=== PATIENT | female | born 1990 | race Caucasian/White ===

== ENCOUNTER 2021-08-06 09:45 | Outpatient (REF) | payer OTHER, SELFPAY ==
--- NOTE | ~2021-08-06 | MR_ITS ---
EXAMINATION: MR BRAIN WITHOUT AND WITH CONTRAST MR CERVICAL SPINE WITHOUT AND WITH CONTRAST CLINICAL INDICATION Multiple sclerosis. COMPARISON: MRI scans of the brain and cervical spine MRI [facility] 08/02/2019 and 08/03/2019 respectively. TECHNIQUE: MRI scans of the brain and cervical spine were obtained using routine sequences without and with contrast. Intravenous contrast: Gadavist, 6 mL. Some images are degraded by patient motion artifact. FINDINGS: MRI Brain: There are multiple areas of increased T2 and FLAIR signal in the periventricular and subcortical white matter bilaterally and in the right greater than left centrum semiovale, and the distribution consistent with demyelination. These appear similar compared to prior imaging. There is also abnormal signal noted in the dorsal mira to the left of midline, which appears less intense compared to prior imaging. Foci of abnormal signal in the medial left middle cerebellar peduncle and in the bilateral cerebellar hemispheres are also redemonstrated. None of these foci demonstrate restricted diffusion or abnormal enhancement to suggest active demyelination. No definite new lesions are demonstrated. No diffusion abnormalities are identified to suggest an acute or subacute infarct. No mass effect or midline shift is seen. The ventricles are normal in size. No extra-axial fluid collections are seen. On postcontrast imaging, there is no abnormal parenchymal or leptomeningeal enhancement. No pathologic magnetic susceptibility artifact is identified on the gradient refocused acquisition. 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 Marrow signal and midline structures are normal. The major intracranial flow-voids at the level of the [place] are preserved. The dural venous sinus flow-voids are maintained. The mastoid air cells are well-aerated. There is a small retention cyst in the inferior right maxillary sinus. MRI Cervical Spine: VERTEBRAL BODIES AND PARASPINAL SOFT TISSUES: There is straightening of the normal cervical lordosis which is nonspecific. Intervertebral disc heights are maintained. The vertebral bodies have normal height and contour and no fractures are demonstrated. Marrow signal is homogenous. The visualized regional soft tissues are unremarkable; evaluation of the lower cervical region is obscured by artifact. There is no abnormal osseous enhancement. CERVICOMEDULLARY JUNCTION AND VISUALIZED POSTERIOR FOSSA: There are multiple areas of increased T2 and STIR signal in the cerebellar hemispheres bilaterally, demonstrated on the concurrent MRI scan of the brain. As described above, the right cerebellar tonsillar tip is low-lying with a pointed configuration. Accounting for artifact, spinal cord signal appears normal. There is no abnormal enhancement of the spinal cord. SPINAL LEVELS: C2-C3: There is a small left-sided disc protrusion with minimal distortion of the ventral thecal sac. There is no spinal cord compression or central stenosis. There is minimal left foraminal narrowing. C3-C4: The facet joints appear normal bilaterally. Posterior disc contour is normal. There is no spinal cord compression or central stenosis. The neural foramina are patent bilaterally. C4-C5: The facet joints appear normal bilaterally. Posterior disc contour is normal. There is no spinal cord compression or central stenosis. The neural foramina are patent bilaterally. C5-C6: There is a shallow posterior disc protrusion, which effaces CSF ventral to the spinal cord. There is no spinal cord compression or central stenosis. The neural foramina appear patent. C6-C7: There is a small posterior disc protrusion without spinal cord compression or central stenosis. The neural foramina are patent bilaterally. C7-T1: The facet joints appear normal bilaterally. Posterior disc contour is normal. There is no spinal cord compression or central stenosis. The neural foramina are patent bilaterally. MR/MR cervical spine wo/w con IMPRESSION: MRI brain: 1. There are no acute bleeds or infarcts. There are no masses or areas of abnormal enhancement. 2. The study redemonstrates multiple areas of hyperintense T2 and FLAIR signal in the supratentorial and infratentorial regions as described above, in a distribution consistent with demyelination. There is no restricted diffusion or abnormal enhancement to suggest active plaques. 3. The right cerebellar tonsillar tip is low-lying with a pointed configuration which may be consistent with a Chiari I malformation. MRI cervical spine: 1. Evaluation is degraded by patient motion artifact on multiple sequences. 2. Spinal cord signal appears normal and there is no abnormal enhancement. 3. There is mild spondylosis without spinal cord compression or central stenosis. There is no significant foraminal narrowing.
== END 2021-08-06 09:46 | disposition home or self-care (01) ==
LOC: HO.MRI 09:45
PROVIDERS: Visit Provider Psychiatry & Neurology Neurology
DX: G35 Multiple sclerosis (principal)
CPT/HCPCS: 70553; 72156; A9585

== ENCOUNTER 2021-08-11 11:43 | Outpatient (REF) | payer OTHER, SELFPAY ==
[2021-08-11 11:57] LABS: MANUAL DIFF FLAG NO
[2021-08-11 12:10] LABS: Basophils Percent Auto 0.3 % (0-2); Eosinophils Absolute Auto 0.1 X10*3/uL (0.0-0.4); Eosinophils Percent Auto 2.1 % (0-4); Hematocrit 41.4 % (37.0-47.0); Hemoglobin 13.7 g/dl (12.0-16.0); Imm Gran Abs Auto 0.02 X10*3/uL (0.00-0.03); Imm Gran Pct Auto 0.3 % (0.0-0.4); Lymphocytes Absolute Auto 2.1 X10*3/uL (1.2-4.9); Lymphocytes Percent Auto 34.6 % (20-40); Mean Corpuscular HGB Conc 33.1 g/dl (31.0-35.0); Mean Corpuscular Hemoglobin 29.7 pg (27.0-33.0); Mean Corpuscular Volume 89.8 fL (80.0-98.0); Mean Platelet Volume 11.9 fL (9.4-12.3); Monocytes Absolute Auto 0.4 X10*3/uL (0.1-1.2); Monocytes Percent Auto 6.5 % (2-11); Neutrophils Absolute Auto 3.4 x10*3/uL (2.0-8.3); Neutrophils Percent Auto 56.2 % (45-73); Platelet Count 206 X10*3/uL (160-400); Red Blood Count 4.61 X10*6/uL (4.20-5.50); Red Cell Distribution Width 12.5 % (11.0-16.0); White Blood Count 6.1 X10*3/uL (4.8-10.8)
[2021-08-11 12:45] LABS: Erythrocyte Sedimentation Rate 2 MM/HR (0-20)
[2021-08-11 13:02] LABS: Alanine Aminotransferase 25 U/L (0-31); Albumin Level 4.7 g/dL (3.5-5.0); Alkaline Phosphatase 66 U/L (39-117); Anion Gap 12 (12-20); Aspartate Amino Transferase 20 U/L (5-31); Bilirubin Direct 0.2 mg/dL (0.0-0.5); Bilirubin Total 0.5 mg/dL (0.0-1.0); Blood Urea Nitrogen 15 mg/dL (9-16); Calcium 9.7 mg/dL (8.4-10.2); Carbon Dioxide 26 mmol/L (22-29); Chloride 105 mmol/L (96-108); Estimated Glomerular Filt Rate > 60; Glucose Random 88 mg/dL (60-115); Potassium 4.3 mmol/L (3.3-5.1); Sodium 139 mmol/L (135-145); Total Protein 7.7 g/dL (6.5-8.0)
[2021-08-12 08:51] LABS: Lyme Abs Screen <0.90 index
[2021-08-18 20:51] LABS: JCV Antibody INDETERMINATE; JCV Index Value 0.24
[2021-08-19 22:36] LABS: JCV Ab Inhibition FINAL RSLT: POSITIVE
== END 2021-08-11 11:44 | disposition home or self-care (01) ==
LOC: HO.LAB 11:43
PROVIDERS: PCP Family Medicine; Visit Provider Psychiatry & Neurology Neurology
DX: G35 Multiple sclerosis (principal)
CPT/HCPCS: 36415; 80053; 82248; 85025; 85652; 86617; 86618; 86711

== ENCOUNTER 2023-01-18 10:30 | Outpatient (REF) | payer OTHER, SELFPAY ==
--- NOTE | ~2023-01-18 | MR_ITS ---
EXAMINATION: MR BRAIN WITHOUT AND WITH CONTRAST MR CERVICAL SPINE WITHOUT AND WITH CONTRAST MR THORACIC SPINE WITHOUT AND WITH CONTRAST CLINICAL INDICATION Multiple sclerosis. COMPARISON: MRI scans of the brain and cervical spine 08/06/2021. TECHNIQUE: MRI scans of the brain, and cervical spine and thoracic were obtained using routine sequences without and with contrast. Intravenous contrast: Gadavist, 7 mL. FINDINGS: MRI Brain: The study redemonstrates multiple areas of increased T2 and FLAIR signal in the periventricular and subcortical white matter, in the right greater than left centra semiovale, in the left middle cerebellar peduncle and in the bilateral cerebellar hemispheres. Multiple of the lesions are more prominent compared to prior imaging. This particularly involves the lesion in the right centrum semiovale body which now measures 1.7 cm transversely, increased from 0.9 cm on the prior study. There has been interval increase in the abnormal signal around the trigone of the right lateral ventricle. Multiple small new foci of increased signal are seen adjacent to the posterior body of the left lateral ventricle. The lesion in the right centrum semiovale demonstrates increased diffusion signal without restriction with hyperintense ADC map signal. It has corresponding prominent area of intrinsically low T1 signal, which has developed since prior imaging. A few of the other small foci of hyperintense T2/STIR signal have corresponding low T1 signal without enhancement, particularly around the posterior body of the left lateral ventricle. None of the foci demonstrate abnormal enhancement. The corpus callosum has good volume. No diffusion abnormalities are identified to suggest an acute or subacute infarct. No mass effect or midline shift is seen. The ventricles and sulci are normal in size. No extra-axial fluid collections are seen. The brainstem and cerebellum are normal. On postcontrast imaging, there is no abnormal parenchymal or leptomeningeal enhancement. No pathologic magnetic susceptibility artifact is identified on the gradient refocused acquisition. Marrow signal and midline structures are normal. The major intracranial flow-voids at the level of the [place] are preserved. The dural venous sinus flow-voids are maintained. The study redemonstrates a low lying right cerebellar tonsillar tip. The mastoid air cells and the paranasal sinuses are well-aerated. MRI Cervical Spine: VERTEBRAL BODIES AND PARASPINAL SOFT TISSUES: There is slight reversal of the normal cervical lordosis at C5-C6. Intervertebral disc heights are maintained. The vertebral bodies have normal height and contour, and no fractures are demonstrated. Overall, marrow signal is homogenous. There is no abnormal osseous enhancement. The regional soft tissues are unremarkable. CERVICOMEDULLARY JUNCTION AND VISUALIZED POSTERIOR FOSSA: As described above, there are areas of abnormal signal in the cerebellum and left middle cerebellar peduncle. On the current exam, there is a new area of increased T2/STIR signal in the spinal cord dorsally in the midline at the level of the superior body of C6, which is a new finding compared to prior imaging. The spinal cord is minimally thicker at this level. Accounting for artifact, spinal cord signal appears normal. There is no abnormal enhancement in the cervical spinal cord. SPINAL LEVELS: C2-C3: The facet joints appear normal. There has been slight interval increase in the size of the left-sided posterior disc protrusion with mild distortion of the ventral thecal sac but there is no cord compression or central stenosis. There is mild left foraminal narrowing. C3-C4: The facet joints appear normal bilaterally. Posterior disc contour is normal. There is no spinal cord compression or central stenosis. The neural foramina are patent bilaterally. C4-C5: The facet joints appear normal. There is a shallow posterior disc protrusion but there is no cord compression or central stenosis. The neural foramina are patent bilaterally. C5-C6: The facet joints appear normal. There is a broad-based posterior disc protrusion which effaces CSF ventral to the spinal cord, slightly more prominent compared to prior imaging, without cord compression or central stenosis. There are uncovertebral osteophytes, and there is mild bilateral foraminal narrowing. C6-C7: The facet joints appear normal. There is a broad-based posterior disc protrusion which effaces CSF ventral to the cord, without cord compression or central stenosis which is slightly more prominent compared to prior imaging. The neural foramina are patent bilaterally. C7-T1: The facet joints appear normal bilaterally. Posterior disc contour is normal. There is no spinal cord compression or central stenosis. The neural foramina are patent bilaterally. MR thoracic spine: VERTEBRAL BODIES AND PARASPINAL STRUCTURES: There is anatomic alignment of the vertebral bodies. Intervertebral disc heights are maintained. The vertebral bodies have normal height and contour, and no fractures are demonstrated. Overall, marrow signal is homogenous. There is no abnormal osseous enhancement following intravenous contrast administration. The paravertebral and the visualized posterior thoracic and superior retroperitoneal structures are unremarkable. The conus is at the level of L1. Accounting for artifact, spinal cord signal appears normal. There is no abnormal enhancement of the thoracic spinal cord. SPINAL LEVELS: Posterior disc contours are normal throughout the thoracic spine, and there is no central stenosis or cord compression. The neural foramina appear patent. MR/MR cervical spine wo/w con IMPRESSION: MRI Brain: 1. The study redemonstrates multiple areas of increased T2 and FLAIR signal in the white matter as described above, consistent with areas of demyelination. Multiple of the lesions are more prominent compared to prior imaging, and some new foci of abnormal signal are demonstrated on the current study. None of the foci demonstrate restricted diffusion or abnormal enhancement. 2. There are no acute bleeds or infarcts. There are no masses or areas of abnormal enhancement. 3. The study redemonstrates a low lying right cerebellar tonsillar tip. MRI Cervical and Thoracic Spine: 1. There is a new area of abnormal signal in the spinal cord dorsally in the midline at the level of the superior body of C6, with slight thickening of the cord at this level. Spinal cord signal otherwise appears normal. There is no abnormal enhancement in the cervical or thoracic spinal cord. 2. There has been slight interval increase in posterior disc protrusions at multiple levels in the cervical spine, but there is no cord compression or central stenosis. There is mild foraminal narrowing as described above. There is no significant spondylosis in the thoracic spine. 3. There is no abnormal osseous enhancement.
== END 2023-01-18 10:31 | disposition home or self-care (01) ==
LOC: HO.MRI 10:30
PROVIDERS: PCP Family Medicine; Visit Provider Psychiatry & Neurology Neurology
DX: G35 Multiple sclerosis (principal)
CPT/HCPCS: 70553; 72156; A9585

== ENCOUNTER 2023-01-20 12:41 | Outpatient (REF) | payer OTHER, SELFPAY ==
--- NOTE | ~2023-01-20 | MR_ITS ---
EXAMINATION: MR BRAIN WITHOUT AND WITH CONTRAST MR CERVICAL SPINE WITHOUT AND WITH CONTRAST MR THORACIC SPINE WITHOUT AND WITH CONTRAST CLINICAL INDICATION Multiple sclerosis. COMPARISON: MRI scans of the brain and cervical spine 08/06/2021. TECHNIQUE: MRI scans of the brain, and cervical spine and thoracic were obtained using routine sequences without and with contrast. Intravenous contrast: Gadavist, 7 mL. FINDINGS: MRI Brain: The study redemonstrates multiple areas of increased T2 and FLAIR signal in the periventricular and subcortical white matter, in the right greater than left centra semiovale, in the left middle cerebellar peduncle and in the bilateral cerebellar hemispheres. Multiple of the lesions are more prominent compared to prior imaging. This particularly involves the lesion in the right centrum semiovale body which now measures 1.7 cm transversely, increased from 0.9 cm on the prior study. There has been interval increase in the abnormal signal around the trigone of the right lateral ventricle. Multiple small new foci of increased signal are seen adjacent to the posterior body of the left lateral ventricle. The lesion in the right centrum semiovale demonstrates increased diffusion signal without restriction with hyperintense ADC map signal. It has corresponding prominent area of intrinsically low T1 signal, which has developed since prior imaging. A few of the other small foci of hyperintense T2/STIR signal have corresponding low T1 signal without enhancement, particularly around the posterior body of the left lateral ventricle. None of the foci demonstrate abnormal enhancement. The corpus callosum has good volume. No diffusion abnormalities are identified to suggest an acute or subacute infarct. No mass effect or midline shift is seen. The ventricles and sulci are normal in size. No extra-axial fluid collections are seen. The brainstem and cerebellum are normal. On postcontrast imaging, there is no abnormal parenchymal or leptomeningeal enhancement. No pathologic magnetic susceptibility artifact is identified on the gradient refocused acquisition. Marrow signal and midline structures are normal. The major intracranial flow-voids at the level of the [place] are preserved. The dural venous sinus flow-voids are maintained. The study redemonstrates a low lying right cerebellar tonsillar tip. The mastoid air cells and the paranasal sinuses are well-aerated. MRI Cervical Spine: VERTEBRAL BODIES AND PARASPINAL SOFT TISSUES: There is slight reversal of the normal cervical lordosis at C5-C6. Intervertebral disc heights are maintained. The vertebral bodies have normal height and contour, and no fractures are demonstrated. Overall, marrow signal is homogenous. There is no abnormal osseous enhancement. The regional soft tissues are unremarkable. CERVICOMEDULLARY JUNCTION AND VISUALIZED POSTERIOR FOSSA: As described above, there are areas of abnormal signal in the cerebellum and left middle cerebellar peduncle. On the current exam, there is a new area of increased T2/STIR signal in the spinal cord dorsally in the midline at the level of the superior body of C6, which is a new finding compared to prior imaging. The spinal cord is minimally thicker at this level. Accounting for artifact, spinal cord signal appears normal. There is no abnormal enhancement in the cervical spinal cord. SPINAL LEVELS: C2-C3: The facet joints appear normal. There has been slight interval increase in the size of the left-sided posterior disc protrusion with mild distortion of the ventral thecal sac but there is no cord compression or central stenosis. There is mild left foraminal narrowing. C3-C4: The facet joints appear normal bilaterally. Posterior disc contour is normal. There is no spinal cord compression or central stenosis. The neural foramina are patent bilaterally. C4-C5: The facet joints appear normal. There is a shallow posterior disc protrusion but there is no cord compression or central stenosis. The neural foramina are patent bilaterally. C5-C6: The facet joints appear normal. There is a broad-based posterior disc protrusion which effaces CSF ventral to the spinal cord, slightly more prominent compared to prior imaging, without cord compression or central stenosis. There are uncovertebral osteophytes, and there is mild bilateral foraminal narrowing. C6-C7: The facet joints appear normal. There is a broad-based posterior disc protrusion which effaces CSF ventral to the cord, without cord compression or central stenosis which is slightly more prominent compared to prior imaging. The neural foramina are patent bilaterally. C7-T1: The facet joints appear normal bilaterally. Posterior disc contour is normal. There is no spinal cord compression or central stenosis. The neural foramina are patent bilaterally. MR thoracic spine: VERTEBRAL BODIES AND PARASPINAL STRUCTURES: There is anatomic alignment of the vertebral bodies. Intervertebral disc heights are maintained. The vertebral bodies have normal height and contour, and no fractures are demonstrated. Overall, marrow signal is homogenous. There is no abnormal osseous enhancement following intravenous contrast administration. The paravertebral and the visualized posterior thoracic and superior retroperitoneal structures are unremarkable. The conus is at the level of L1. Accounting for artifact, spinal cord signal appears normal. There is no abnormal enhancement of the thoracic spinal cord. SPINAL LEVELS: Posterior disc contours are normal throughout the thoracic spine, and there is no central stenosis or cord compression. The neural foramina appear patent. MR/MR thoracic spine wo/w con IMPRESSION: MRI Brain: 1. The study redemonstrates multiple areas of increased T2 and FLAIR signal in the white matter as described above, consistent with areas of demyelination. Multiple of the lesions are more prominent compared to prior imaging, and some new foci of abnormal signal are demonstrated on the current study. None of the foci demonstrate restricted diffusion or abnormal enhancement. 2. There are no acute bleeds or infarcts. There are no masses or areas of abnormal enhancement. 3. The study redemonstrates a low lying right cerebellar tonsillar tip. MRI Cervical and Thoracic Spine: 1. There is a new area of abnormal signal in the spinal cord dorsally in the midline at the level of the superior body of C6, with slight thickening of the cord at this level. Spinal cord signal otherwise appears normal. There is no abnormal enhancement in the cervical or thoracic spinal cord. 2. There has been slight interval increase in posterior disc protrusions at multiple levels in the cervical spine, but there is no cord compression or central stenosis. There is mild foraminal narrowing as described above. There is no significant spondylosis in the thoracic spine. 3. There is no abnormal osseous enhancement.
== END 2023-01-20 12:42 | disposition home or self-care (01) ==
LOC: HO.MRI 12:41
PROVIDERS: PCP Family Medicine; Visit Provider Psychiatry & Neurology Neurology
DX: G35 Multiple sclerosis (principal)
CPT/HCPCS: 72157; A9585

== ENCOUNTER 2023-07-15 10:14 | Outpatient (REF) | payer MEDICAID, SELFPAY ==
--- NOTE | ~2023-07-15 | MR_ITS ---
EXAMINATION: MR BRAIN WITHOUT AND WITH CONTRAST MR CERVICAL SPINE WITHOUT AND WITH CONTRAST CLINICAL INFORMATION: Follow up MS. COMPARISON: 01/18/2023 MRI. TECHNIQUE: Multiplanar multisequence MR imaging of the brain was done prior to and following the intravenous administration of 7.5 mL of Gadavist. Multiplanar multisequence MR imaging of the cervical spine was done prior to and following the intravenous administration of 7.5 mL Gadavist. BRAIN FINDINGS: BRAIN VOLUME: Within normal limits within the limitations of qualitative assessment. 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 BRAIN AND MENINGES: DWI sequence demonstrates no restricted diffusion to suggest acute or subacute cerebral ischemia or active demyelination. Gradient refocused imaging demonstrates no abnormal susceptibility-weighted signal loss to suggest hemorrhage, hemosiderin staining or abnormal mineralization. Redemonstrated are numerous T2 hyperintense lesions in the white matter of both cerebral hemispheres as noted on previous study. Previously noted dominant lesion in the right centrum semiovale white matter has diminished in size, now measuring 1.3 cm, compared to 1.7 cm on the previous exam. There is diminished low T1 signal corresponding to this lesion when compared to the prior exam, and there is now a 2 mm punctate focus of enhancement corresponding to this lesion. This probably reflects partial collapse of a previous cavitary lesion. Focal enhancement on current study suggests either some degree of active inflammation or neovascularity. Some lesions in the deep periventricular white matter adjacent to the posterior body of the corpus callosum on the left appear somewhat less conspicuous and diminished in T2 signal from previous study. Multiple other lesions noted bilaterally are stable. Juxtacortical lesions in the anterior left frontal lobe and posterior left frontal lobe are stable. No definite new lesions are seen since the previous exam. Small focus of abnormal T2 hyperintense signal in the left cerebral hemispheric white matter, stable in appearance, and a tiny T2 hyperintense focus in the right cerebellar hemispheric white matter also unchanged. No other abnormal enhancement is seen throughout the remainder of the brain. T1 dark lesions adjacent to the posterior body of the corpus callosum on the left are stable. VENTRICLES AND SUBARACHNOID SPACES: The ventricular system and subarachnoid spaces are within normal range; there is no hydrocephalus. ORBITAL STRUCTURES: The visualized orbital structures are grossly unremarkable within the limitations of the study. VASCULAR: Signal voids are noted in the visualized major intracranial vessels. OSSEOUS STRUCTURES, SINUSES/MASTOIDS, EXTRACRANIAL SOFT TISSUES: Unremarkable MR/MR cervical spine wo/w con IMPRESSION: 1. Multiple white matter lesions in both cerebral and cerebellar hemispheres are again noted, some of which are diminished in size and are less conspicuous, and some of which are diminished in T2 signal. There is a 2 mm punctate focus of enhancement in the previously noted dominant right centrum semiovale white matter lesion, which may reflect some degree of active inflammation or neovascularity, with partial collapse of a central cavity. No new lesions are identified and there is no other abnormal enhancement. 2. 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 CERVICAL FINDINGS: ALIGNMENT: Normal. CRANIOCERVICAL JUNCTION/C1-C2 ARTICULATIONS: Intact and aligned. VISUALIZED INTRACRANIAL STRUCTURES: See above. SPINAL CORD: Redemonstrated is a nonenhancing T2 hyperintense lesion within the dorsal spinal cord in the midline at the C5-C6 level, grossly stable in appearance when accounting for motion artifact on the current exam. No definite new lesions are seen within the cervical or visualized upper thoracic spinal cord. VERTEBRAL BODIES: Stable vertebral body heights. No interval compression fractures. DISC SPACES AND ENDPLATES: Disc desiccation at C6-C7, stable in appearance. No significant disc space height loss or spondylosis. Endplates appear intact. BONE MARROW: No significant marrow-replacing process or bone marrow edema. C2-C3: Small left paramedian disc osteophyte complex with mild indentation of the ventral thecal sac on the left without neural impingement, stable in appearance. Mild left-sided foraminal narrowing is stable. C3-C4: Unremarkable. C4-C5: Small left paramedian disc protrusion is stable without cord impingement or canal stenosis. C5-C6: Shallow central disc protrusion noted at this level, stable in appearance, with minimal indentation of the ventral thecal sac without cord impingement or canal stenosis. C6-C7: Mild broad-based disc protrusion again noted, with encroachment on the ventral thecal sac, without cord impingement or canal stenosis, stable in appearance. C7-T1: Unremarkable. EXTRACRANIAL SOFT TISSUES: The visualized extracranial head/neck soft tissues are unremarkable within the limitations of the study. Signal voids are seen in the visualized major arterial and venous structures. IMPRESSION: 1. Stable solitary nonenhancing lesion in the spinal cord at the C6 level. No definite new spinal cord lesions are seen. 2. Stable multilevel disc protrusions without cord impingement or canal stenosis.
[2023-07-15] MEDS: gadobutroL 7.5 ML VIAL IVPUSH (11:24)
== END 2023-07-15 10:15 | disposition home or self-care (01) ==
LOC: HO.MRI 10:14
PROVIDERS: PCP Family Medicine; Visit Provider Psychiatry & Neurology Neurology
DX: G35 Multiple sclerosis (principal)
CPT/HCPCS: 70553; 72156; A9585

== ENCOUNTER 2024-05-16 13:58 | Outpatient (REF) | payer MEDICAID, SELFPAY ==
[2024-05-16 14:11] LABS: MANUAL DIFF FLAG NO
[2024-05-16 14:41] LABS: Basophils Absolute Auto 0.1 X10*3/uL (0.0-0.2); Basophils Percent Auto 0.6 % (0-2); Eosinophils Absolute Auto 0.3 X10*3/uL (0.0-0.4); Eosinophils Percent Auto 2.7 % (0-4); Hematocrit 38.9 % (37.0-47.0); Hemoglobin 13.1 g/dl (12.0-16.0); Mean Corpuscular HGB Conc 33.7 g/dl (31.0-35.0); Mean Corpuscular Hemoglobin 28.6 pg (27.0-33.0); Mean Corpuscular Volume 84.9 fL (80.0-98.0); Mean Platelet Volume 12.3 fL (9.4-12.3); Monocytes Absolute Auto 0.6 X10*3/uL (0.1-1.2); Monocytes Percent Auto 6.2 % (2-11); NRBC Pct Auto 0.3 /100WBC (0.0-0.2); Neutrophils Absolute Auto 4.7 x10*3/uL (2.0-8.3); Neutrophils Percent Auto 48.5 % (45-73); Platelet Count 200 X10*3/uL (160-400); Red Blood Count 4.58 X10*6/uL (4.20-5.50); Red Cell Distribution Width 13.7 % (11.0-16.0); White Blood Count 9.7 X10*3/uL (4.8-10.8)
[2024-05-16 15:17] LABS: Alanine Aminotransferase 17 U/L (0-31); Albumin Level 4.5 g/dL (3.5-5.0); Anion Gap 13 (12-20); Aspartate Amino Transferase 22 U/L (5-31); Bilirubin Direct 0.2 mg/dL (0.0-0.5); Bilirubin Total 0.4 mg/dL (0.0-1.0); Blood Urea Nitrogen 8 mg/dL (9-16); Calcium 9.6 mg/dL (8.4-10.2); Carbon Dioxide 25 mmol/L (22-29); Chloride 105 mmol/L (96-108); Estimated Glomerular Filt Rate > 60; Glucose Random 87 mg/dL (60-115); Potassium 3.8 mmol/L (3.3-5.1); Sodium 139 mmol/L (135-145); Total Protein 7.3 g/dL (6.5-8.0)
[2024-05-16 15:22] LABS: Alkaline Phosphatase 69 U/L (39-117)
[2024-05-22 21:54] LABS: JCV Antibody INDETERMINATE
[2024-05-22 22:03] LABS: JCV Ab Inhibition FINAL RSLT: NEGATIVE
== END 2024-05-16 13:59 | disposition home or self-care (01) ==
LOC: HO.LAB 13:58
PROVIDERS: Visit Provider Psychiatry & Neurology Neurology
DX: G35 Multiple sclerosis (principal)
CPT/HCPCS: 36415; 80048; 80076; 85025; 86711

== ENCOUNTER 2024-12-07 14:50 | Outpatient (REF) | payer OTHER, SELFPAY ==
--- OUTSIDE RECORDS SUMMARY | 2024-12-07 14:54 | XMS_ITS | Encounter Summary ---
Author Organization [facility] Address [address] [place] [address] Care Team Providers Care Return Checker Name Role Phone Mary Carmen Kendall MD Primary Care Provider [phone] Reason for Visit * Reason Onset Date Comments Back Pain 12/06/2024 Encounter Details Date Type Department Care Team (Late st Contact Info) Description 12/06/2024 Telephone Adult Medicine [address] [id number] Mary Carmen Kendall MD [address] [place] [id number] Back Pain Social History Tobacco Use Types Packs/Day Years Used Date Smoking Tobacco: Former Smokeless Tobacco: Never Alcohol Use Standard Drinks/Week Comments Yes 0 (1 standard drink = 0.6 oz pur e alcohol) Comments Unknown Sex and Gender Information Value Date Recorded Sex Assigned at Not on file Legal Sex Female 1:18 AM EST Gender Identity Not on file Sexual Orientation Not on file documented as of this encounter Progress Notes * Jose Sommer RN - 12/06/2024 2:37 PM EDT Called pt left vm to return call * Yesenia Mccoy - 12/06/2024 2:11 PM EDT The patient is returning. * Liset Dunlap RN - 12/06/2024 1:55 PM EDT Call to pt. Left message for pt to call triage * Tiffany Hauser - 12/06/2024 1:49 PM EDT Patient returning call * Jose Sommer RN - 12/06/2024 1:34 PM EDT Called pt left vm to return call * Yeni Hernandez - 12/06/2024 1:22 PM EDT Patient call requires triage: Symptoms patient is presenting: Patient has MS and was doing Tyfabri infusions 1x a month every month. She's been off it for 2 months due to abnormal GTC labs were off which was a side effect of the medication. She states that she has gained a lot of weight and her back has been hurting. How long has patient had these symptoms?: 2 months For ALL patients calling to schedule any appointment (routine, sick visit, follow up, consult, etc.) in the outpatient setting please ask the following questions: Do you have fever of higher than 101, sore throat with difficulty swallowing or severe shortness ofbreath? no If YES to any of these above symptoms, send a message to triage and do not book. Red dot. If no, an audio or video visit should be booked. Have you had close contact with someone with Coronavirus in the last 14 days? no Have you traveled abroad? no Have you traveled recently to another state outside of [place], [place], [place], [place], [place], [place], [place]? no o If yes, did you quarantine for 14 days or have a negative covid test? no If yes to any of the above, patient is not to be scheduled in office until after 14 day quarantine or negative covid test. If pain or injury related was it due to an accident at work or from a motor vehicle accident? If yes, date of accident/Injury: No If yes, gather 3rd democrat insurance information Third Republican Information: not applicable PCP: aMry Carmen Kendall MD Payor: / No coverage found. documented in this encounter Plan of Treatment Not on file documented as of this encounter Visit Diagnoses Not on filedocumented in this encounter Care Teams Return Checker Relationship Specialty Start Date End Date Mary Carmen Kendall MD PCP - General Internal Medicine 04/19/22 documented as of this encounter
[2024-12-07 15:03] LABS: MANUAL DIFF FLAG NO
[2024-12-07 15:21] LABS: Basophils Percent Auto 0.4 % (0-2); Eosinophils Absolute Auto 0.2 X10*3/uL (0.0-0.4); Eosinophils Percent Auto 2.4 % (0-4); Hematocrit 37.4 % (37.0-47.0); Hemoglobin 12.6 g/dl (12.0-16.0); Imm Gran Abs Auto 0.02 X10*3/uL (0.00-0.03); Imm Gran Pct Auto 0.3 % (0.0-0.4); Lymphocytes Absolute Auto 2.4 X10*3/uL (1.2-4.9); Lymphocytes Percent Auto 32.3 % (20-40); Mean Corpuscular HGB Conc 33.7 g/dl (31.0-35.0); Mean Corpuscular Volume 83.1 fL (80.0-98.0); Mean Platelet Volume 11.6 fL (9.4-12.3); Monocytes Absolute Auto 0.5 X10*3/uL (0.1-1.2); Neutrophils Absolute Auto 4.4 x10*3/uL (2.0-8.3); Neutrophils Percent Auto 58.6 % (45-73); Platelet Count 215 X10*3/uL (160-400); Red Cell Distribution Width 14.3 % (11.0-16.0); White Blood Count 7.5 X10*3/uL (4.8-10.8)
[2024-12-07 15:51] LABS: Alanine Aminotransferase 23 U/L (0-31); Albumin Level 4.5 g/dL (3.5-5.0); Alkaline Phosphatase 79 U/L (39-117); Aspartate Amino Transferase 25 U/L (5-31); Bilirubin Direct 0.2 mg/dL (0.0-0.5); Bilirubin Total 0.5 mg/dL (0.0-1.0); Total Protein 7.1 g/dL (6.5-8.0)
[2024-12-08 08:36] LABS: HBS Num1 3.04 mIU/mL (0-7.99); HBc Num1 0.06 S/CO (0.00-0.79); HBsAGNum1 0.33 S/CO (0.00-0.99); Hepatitis B Core Antibody Nonreactive (Nonreactive); Hepatitis B Surface Antigen Negative (Negative); ~Hepatitis B Surface Antibody NONREACTIVE (Nonreactive)
[2024-12-10 21:58] LABS: JCV Antibody NEGATIVE; JCV Index Value 0.16 index
[2024-12-12 18:53] LABS: IgA 298 mg/dL (47-310); IgG 1117 mg/dL (600-1640); IgM 96 mg/dL (50-300)
== END 2024-12-07 14:51 | disposition home or self-care (01) ==
LOC: HO.LAB 14:50
PROVIDERS: Visit Provider Registered Nurse
DX: G35 Multiple sclerosis (principal)
CPT/HCPCS: 36415; 80076; 82784; 85025; 86704; 86706; 86711; 87340

== ENCOUNTER 2024-12-29 15:16 | Outpatient (REF) | payer OTHER, SELFPAY ==
--- OUTSIDE RECORDS SUMMARY | 2024-11-19 14:00 | XMS_ITS ---
Author Organization Star Dickerson III, MD Address [address] [facility] [address] [place] [address] Care Team Providers Care Track Layer Head Name Role Phone David Miller Primary Care Provider Star Burger [phone] Gunnar GEE, [facility] Unavailable Unavailabl e REASON FOR VISIT Tysabri infusion Social History Sex Assigned At : Social History Observation Description Sex Assigned At Female Encounters Encounter Location Date Provider Diagnosis Star Dickerson III, MD [address] [place] [address] [place] [address] 11/19/2024 Star Dickerson Plan Of Treatment No Information Progress Notes * LINDA MORENOB:1990 ( 34 yo F)Acc No.[id number]:11/19/2024 Patient: AZALIA LEPE Provider: Chrissy Dickerson MD [...] 11/19/2024 Generated for Cayetano leonard/Renetta/Tashi on: 0 12/29/2024 03:19 PM EDT
--- NOTE | ~2024-12-29 | MR_ITS ---
CLINICAL HISTORY: MS MR cervical spine with and without gadolinium Comparison: MR/SR - MR CERVICAL SPINE WO/W CON - 07/15/23 10:36 EST Findings: There is a new focus of T2 signal prolongation within the upper cervical cord at the C2-C3 level, measuring up to 5 mm in craniocaudal dimension. This lesion exhibits abnormal postcontrast enhancement. Previous lesion at the C6 level is less apparent. No additional abnormal enhancement. Normal vertebral body alignment. Mild disc space narrowing with small posterior disc protrusions from C4 through C7, otherwise no significant degenerative changes. No acute fractures or pathologic bone lesions. Neck soft tissues are unremarkable. Impression: There is a new, active white matter lesion within the cervical cord at the C2-C3 level as detailed above. This document has been electronically signed by: iMng Serrano MD on 01/01/2025 10:14:25
--- OUTSIDE RECORDS SUMMARY | 2024-12-29 15:19 | XMS_ITS | Clinical Summary ---
Author Organization [facility] [address] [place] [address] [place] [phone] Phone Care Team Providers Care Geothermal Plant Manager Name Role Phone Mary Carmen Kendall MD Primary Care Provider [phone] Allergies No known active allergies Medications cholecalciferol (VITAMIN D-3) 50 mcg (2,000 unit) capsule Take 1 capsule (2,000 Units total) by mouth 1 (one) time each day. 04/13/2023 Active amitriptyline (ELAVIL) 50 mg tablet Take 1 tablet (50 mg total) by mouth at bedtime. Active natalizumab (TYSABRI) 300 mg/15 mL injection Inject 15 mL into the vein every 28 days. Active PARoxetine (PAXIL) 20 mg tablet Take 1 tablet (20 mg total) by mouth 1 (one) time each day in the morning. Active LORazepam (ATIVAN) 1 mg tablet Take 1 tablet (1 mg total) by mouth 1 (one) time each day. Max Daily Amount: 1 mg Active Active Problems Problem Noted Date Diagnosed Date Anxiety 12/03/2020 Insomnia 12/03/2020 Multiple sclerosis (CMS/HCC V24, CMS/HCC V28) Encounters Date Type Department Care Team Description 12/06/2024 Telephone Adult Medicine [facility] [address] [place] [address] Mary Carmen Kendall MD Back Pain from Last 3 Months Immunizations Name Administration Dates Next Due HPV, Quadrivalent 07/14/2018 Hepatitis B Pediatric (Enger ix B; Recombivax HB) to less than 20 yo 1989 MMR, measles mumps and rubel la Live (Priorix; M-M-R II) 12mo and older 1990 Social History Tobacco Use Types Packs/Day Years Used Date Smoking Tobacco: Former Smokeless Tobacco: Never Alcohol Use Standard Drinks/Week Comments Yes 0 (1 standard drink = 0.6 oz pur e alcohol) Comments Unknown Sex and Gender Information Value Date Recorded Sex Assigned at Not on file Legal Sex Female 1:18 AM EST Gender Identity Not on file Sexual Orientation Not on file Obstetrics History Last Filed Vital Signs Vital Sign Reading Time Taken Comments Blood Pressure 124/78 04/13/2023 11:04 AM EDT Pulse 86 04/13/2023 11:04 AM EDT Temperature - - Respiratory Rate - - Oxygen Saturation - - Inhaled Oxygen Concentration - - Weight 72.6 kg (160 lb) 04/13/2023 11:04 AM EDT Height 154.9 cm (5' 1 ) 04/13/2023 11:04 AM EDT Body Mass Index 30.23 04/13/2023 11:04 AM EDT Plan of Treatment Health Maintenance Due Date Last Done Comments Hepatitis B Vaccines (2 of 3 - 3-dose series) 1989 1989 DTaP,Tdap,and Td Vaccines (1 - Tdap) 2008 Cervical Cancer Screening: P ap Smear 2010 HPV Vaccines (2 - 3-dose SCD M series) 08/11/2018 07/14/2018 Depression Screening 05/23/2022 Social Influencers of Health Screening 05/23/2022 COVID-19 Vaccine (1 - 2023-2 5 season) 2024 Influenza Vaccine (#1) 2025 Cholesterol Screening (Lipid Panel) 10/21/2027 10/20/2022 MMR Vaccines Completed 1990 HIV Screening Completed 12/03/2020 Hepatitis C Screening Completed 12/03/2020 HIB Vaccines Aged Out No longer eligi ble based on patient's age to complete this topic Hepatitis A Vaccines Aged Out No long er eligible based on patient's age to complete this topic IPV Vaccines Aged Out No longer eligi ble based on patient's age to complete this topic Meningococcal ACWY Vaccine Aged Out N o longer eligible based on patient's age to complete this topic Meningococcal B Vaccine Aged Out No l onger eligible based on patient's age to complete this topic Pneumococcal Vaccine: Pediat rics (0 to 5 Years) and At-Risk Patients (6 to 49 Years) Aged Out No longer eligi ble based on patient's age to complete this topic RSV Immunization Patients Un otoniel 20 months Aged Out No longer eligible b ased on patient's age to complete this topic Varicella Vaccines Aged Out No longer eligible based on patient's age to complete this topic Procedures Procedure Name Priority Date/Time Associated Diagnosis Comments LIPID PANEL Routine 10/20/2022 HEPATITIS C SCREENING Routine 12/03/2020 HIV SCREENING Routine 12/03/2020 from Last 3 Months or Most Recently Relevant to Health Maintenance Results * Lipid panel (10/20/2022) Pathologist [facility] LDL/HDL Ratio 2 0 - 4 Triglycerides 31 0 - 150 mg/dL Cholesterol 104 0 - 200 mg/dL HDL 54 >=40 mg/dL LDL Cholesterol 44 0 - 100 mg/dL Blood Venous blood specimen / Unknown Historical Provider LAB BLOOD ORDERABLES Luba l Result * HIV Screening (12/03/2020) HIV Screening Abstracted Historical Provider HEALTH MAINTENANCE Final Result * Hepatitis C Screening (12/03/2020) Pathologist [facility] Hepatitis C Screening Abstracted Historical Provider HEALTH MAINTENANCE Final Result from Last 3 Months or Most Recently Relevant to Health Maintenance Insurance [facility] Care Teams Geothermal Plant Manager Relationship Specialty Start Date End Date Mary Carmen Kendall MD PCP - General Internal Medicine 04/19/22
== END 2024-12-29 15:17 | disposition home or self-care (01) ==
LOC: HO.MRI 15:16
PROVIDERS: Visit Provider Registered Nurse
DX: G35 Multiple sclerosis (principal)
CPT/HCPCS: 72156; A9585

== ENCOUNTER → 2024-12-29 15:35 | Outpatient (BNV) | payer OTHER, SELFPAY | PROVIDERS: Visit Provider Radiology Vascular & Interventional Radiology | DX: R90.82 White matter disease, unspecified (principal) | CPT/HCPCS: 72156 ==

== ENCOUNTER 2025-01-05 15:36 | Outpatient (REF) | payer OTHER, SELFPAY ==
--- NOTE | ~2025-01-05 | MR_ITS ---
CLINICAL HISTORY: MS MR brain with and without contrast. COMPARISON: MR brain dated 07/15/23 at 10:36 EST FINDINGS: No abnormal diffusion restriction in the brain parenchyma or extra-axial spaces. Multiple T2/FLAIR hyperintense lesions present within the cerebral hemispheres bilaterally several of these are periventricular extending perpendicular to the corpus callosum. There are peripherally enhancing lesions within the anterior left frontal lobe, left temporal lobe in the middle cranial fossa, posterior right parietal lobe and periventricular white matter along the posterior aspect of the right ventricle. These are new since prior imaging. Lesion within the left frontal lobe has complete ring-like enhancement with bright T2 internal signal suggestive of tumefactive MS/necrosis. There is adjacent edema. Additional lesion within the middle cranial fossa in the left temporal lobe also demonstrates internal bright T2 signal suggestive of tumefactive MS/necrosis. No intracranial hemorrhage or abnormal extra-axial fluid collection. No hydrocephalus. Basilar cisterns are patent. Cerebellar hemispheres and cerebellar vermis are normal. Fourth ventricle is normal. No brainstem abnormality is identified. Intracranial flow voids are patent. Visualized paranasal sinuses are clear. Small amount of fluid present within the right mastoid air cells. IMPRESSION: 1. Multiple new T2/FLAIR lesions within the bilateral cerebral hemispheres consistent with new demyelinating disease. Several of these demonstrate peripheral enhancement consistent with acute inflammation. 2. 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 These are new since prior imaging. This document has been electronically signed by: Thomas Wilson MD on 01/05/2025 17:47:06
--- OUTSIDE RECORDS SUMMARY | 2025-01-05 15:40 | XMS_ITS | Clinical Summary ---
Author Organization [facility] [address] [place] [address] [place] [phone] Phone Care Team Providers Care Woven Blind Loom Tender Name Role Phone Mary Carmen Kendall MD Primary Care Provider [phone] Allergies No known active allergies Medications cholecalciferol [...] Care Team Description 12/06/2024 Telephone Adult Medicine [facility] [address] [place] [address] Mary Carmen Kendall MD Back Pain from [...] Results * Lipid panel (10/20/2022) Pathologist [facility] LDL/HDL Ratio 2 0 - 4 Triglycerides 31 0 - 150 mg/dL Cholesterol 104 0 - 200 mg/dL HDL 54 >=40 mg/dL LDL Cholesterol 44 0 - 100 mg/dL Blood Venous blood specimen / Unknown Historical Provider LAB BLOOD ORDERABLES Luba l Result * HIV Screening (12/03/2020) HIV Screening Abstracted Historical Provider HEALTH MAINTENANCE Final Result * Hepatitis C Screening (12/03/2020) Pathologist [facility] Hepatitis C Screening Abstracted Historical Provider HEALTH MAINTENANCE Final Result from Last 3 Months or Most Recently Relevant to Health Maintenance Insurance [facility] [employer] Care Teams Woven Blind Loom Tender Relationship Specialty Start Date End Date Mary Carmen Kendall MD PCP - General Internal Medicine 04/19/22
== END 2025-01-05 15:37 | disposition home or self-care (01) ==
LOC: HO.MRI 15:36
PROVIDERS: Visit Provider Registered Nurse
DX: G35 Multiple sclerosis (principal)
CPT/HCPCS: 70553; A9585

== ENCOUNTER → 2025-01-05 15:45 | Outpatient (BNV) | payer OTHER, SELFPAY | PROVIDERS: Visit Provider Radiology Diagnostic Radiology | DX: G37.9 Demyelinating disease of central nervous system, unspecified (principal) | CPT/HCPCS: 70553 ==

== ENCOUNTER 2025-01-09 13:28 | Outpatient (AMB) | payer OTHER, SELFPAY ==
--- OUTSIDE RECORDS SUMMARY | 2024-11-19 14:00 | XMS_ITS ---
Author Organization Star Dickerson III, MD Address [address] [facility] [address] [place] [address] Care Team Providers Care Implementation Director Name Role Phone David Miller Primary Care Provider Star Burger [phone] Gunnar GEE, [facility] Unavailable Unavailabl e REASON FOR VISIT Tysabri infusion Social History Sex Assigned At : Social History Observation Description Sex Assigned At Female Encounters Encounter Location Date Provider Diagnosis Star Dickerson III, MD [address] [place] [address] [place] [address] 11/19/2024 Star Dickerson Plan Of Treatment No Information Progress Notes * LINDA MORENOB:1990 ( 34 yo F)Acc No.[id number]:11/19/2024 Patient: AZALIA LEPE Provider: Chrissy Dickerson MD :1990 A ge:34 Y S ex:Female Date:11/19/2024 Address:[id number] Pcp:David Miller Subjective: * [...] * Provider: Chrissy Dickerson MD Date: 0 11/19/2024 Generated for Cayetano leonard/Renetta/Tashi on: 0 01/09/2025 02:01 PM ZAHIRAT
--- NOTE | 2025-01-09 13:31 | MHC.OFFVIS ---
Vital Signs 01/09/25 13:31 Height 5 ft 1 in Intake Visit Reasons: AFTER MRI Allergies No Known Allergies Allergy (Verified 01/09/25 13:31) Medication List - Last Reconciled 01/09/25 by Argelia Lassiter CNP dextroamphetamine-amphetamine 10 mg 1 tab PO BID lorazepam 1 mg PO BEDTIME HPI Comments Details: She was here for MRI results. She started with R hand numbness at the beginning of 12/2024 and was given prednisone taper which did not help. C-spine MRI on 12/29/2024 showed new, enhancing lesion at C2-3 and IV Solu-Medrol 1000mg x5 days was ordered, but she has not received medication yet. She was having more numbness to RUE. She was dropping objects from hand. More fatigued, decreased energy, trouble focusing and concentrating. Some headaches and blurry vision. She was working with PT, no falls. Sleep was not so good. Ongoing stress. Working full-time, has FMLA forms to be completed. Stopped Tysabri in 09/2024, felt better after stopping medication. She felt more normal, not as tired or drained. Headaches were not as often or severe, may be triggered by warm weather. She was still having pain, particularly to upper back and shoulder, some R ankle pain, and felt like ankle may give out at times. No falls. Still gaining weight. She was concerned about possible side effects of MS medications, including PML, but was agreeable to trying Kesimpta. She tried Tecfidera in [place], but stopped medication due to side effects.?She works at [employer]. She was on monthly Tysabri and said feels unwell for a week or more after, pains in ankles, and gaining weight. She wanted to stop it for 2 months and see if symptoms are from medication. Numbness in legs better. Was having almost daily headaches with some photophobia, sonophobia, and occasional clouding of vision. Stopped amitriptyline. Tired and fatigued all the time, trouble focusing. Amantadine did not help and stopped taking. Adderall works better. Many stressors, anxious and depressed. Lorazepam helps with anxiety. She has four children, youngest has ODD. MRI in 01/2023 showed multiple new lesions on brain MRI and C-spine MRI as she delayed starting Tysabri by 15 months. First dose of Tysabri was 11/2022. After medication was ordered in 08/2021, she did not return for follow up for 7 months until 04/2022 when she was having more tingling in left arm and leg and had not yet started medication. She has numbness from the waist down, trouble walking, mental clouding, headaches, dizziness, and nausea. Worsening depression and anxiety following the murder of her cousin in 2020 and was having to go to court. She was diagnosed with MS at [facility] in 2019 and was hospitalized because of slurred speech, right facial droop and right-sided paresthesia that then extended to both sides and went up to the belly button. She had MRIs and lumbar puncture done and was given an IV Solumedrol infusion. She said she had a reaction to it with tachycardia. She was then put on Tecfidera and didn't like how she felt and stopped all medications. [facility] Medical History (Updated 01/03/25 @ 08:28 by Azalia Christian MA) Migraine Carpal tunnel syndrome, bilateral upper limbs ADD (attention deficit disorder) Anxiety and depression Multiple sclerosis Review of Systems Const Denies chills, Denies daytime sleepiness, Reports difficulty sleeping, Reports fatigue, Denies fever(s), Denies frequent falls, Reports headache(s), Denies increased appetite, Denies poor appetite, Denies snoring, Denies weakness, Denies weight gain and Denies weight loss Eyes Denies loss of vision ENT Denies vertigo, Denies dizziness, Reports headache(s) and Reports neck pain Card Denies chest pain at rest, Denies chest pain with activity, Denies syncope, Denies leg edema, Denies palpitations, Denies dyspnea and Denies dyspnea on exertion Resp Denies cough, Denies dyspnea, Denies dyspnea on exertion and Denies snoring GI Denies abdominal pain, Denies constipation, Denies heartburn, Denies diarrhea and Denies nausea Denies urinary frequency, Denies urinary incontinence and Denies urinary urgency Musc Denies abnormal gait, Reports back pain, Denies myalgias, Reports arthralgias, Reports neck pain, Reports numbness and Reports tingling Neuro Denies abnormal gait, Denies vertigo, Denies dizziness, Denies syncope, Denies frequent falls, Reports headache(s), Denies lack of coordination, Denies loss of vision, Denies memory loss, Reports numbness, Denies Other visual disturbances, Denies restless legs, Denies seizure-like activity, Reports tingling, Denies paresthesias, Denies tremor(s) and Denies weakness Psych Reports anxiety, Reports depression, Denies auditory hallucinations, Denies memory loss and Denies visual hallucinations Endo Reports fatigue and Denies palpitations Physical Exam Const Other: General Appearance:? normal, in no acute distress. Heart:? S1, S2 normal, no murmurs. Lungs:? clear anteriorly and posteriorly. Musculoskeletal:? normal. Extremities:? no edema. Psych:? alert, oriented, cognitive function intact, cooperative with exam. Neuro Other: Abnormal Neurological Findings:?Generalized UE weakness, R > L. KJs 3+ Mental Status: alert and oriented X 3. Normal attention, orientation, memory, and affect. Cranial Nerves: Pupils are equal, round, and reactive to light. External ocular muscles are intact. Visual almaguer are full, no ptosis. Face is symmetrical, no facial weakness or droop. Facial sensations are normal. Tongue protrudes in midline. Palate elevates symmetrically. Shoulder shrugging is normal Motor Examination: As above, otherwise normal muscle tone, bulk and strength. No atrophy or fasciculations. No drift of the extended upper extremities. DTR 2+, KJs 3+. Plantars are flexor. Straight Leg Raisin degrees. Sensory Exam: Normal light touch, temperature, pinprick, vibration, and joint-position sensations. Rhomberg sign is absent. Coordination: No ataxia. No titubation. Mgebta-ux-pxfi, gggf-cctf-rtde test, and rapid alternating movements were normal. Gait Exam: Within normal limits. Cerebellar Signs: Jgwsxz-jo-nyur and gbak-il-quaj is normal. No dysdiadochokinesia. Extrapyramidal System: No tremor, rigidity with normal facial expressions. No bradykinesia. No bradyphrenia. Normal arm swing and posture. No propulsion or retropulsion. Speech: Normal. No dysphasia or dysarthria. Results Reviewed Results Reviewed: Laboratory Tests 12/07/24 15:01 WBC 7.5 RBC 4.50 Hgb 12.6 Hct 37.4 MCV 83.1 MCH 28.0 MCHC 33.7 RDW 14.3 Plt Count 215 MPV 11.6 Immature Gran % (Auto) 0.3 Neut % (Auto) 58.6 Lymph % (Auto) 32.3 [place] % (Auto) 6.0 Eos % (Auto) 2.4 Baso % (Auto) 0.4 Lymph # (Auto) 2.4 [place] # (Auto) 0.5 Eos # (Auto) 0.2 Baso # (Auto) 0.0 Abs Immat Gran (auto) 0.02 Absolute Neuts (auto) 4.4 Absolute Nucleated RBC 0.000 Nucleated RBC % (auto) 0.0 Total Bilirubin 0.5 Direct Bilirubin 0.2 AST 25 ALT 23 Alkaline Phosphatase 79 Total Protein 7.1 Albumin 4.5 IgG Total 1117 IgA Total 298 IgM 96 Hep Bs Antigen Negative Hep Bs Antibody NONREACTIVE Hep B Core Total Ab Nonreactive DANAE Virus Antibody NEGATIVE DANAE Virus Ab Index VANESSA 0.16 DANAE Virus Ab Inhib Assay [place] [id number] Magnetic Resonance Report Signed with Cristin Patient: Eleni Payne MR#: [id number] : 1990 Acct:[id number] Age/Sex: 34 / F ADM Date: 12/29/24 Loc: HO.MRI Attending Dr: Argelia Lassiter CNP Ordering Physician: Argelia Lassiter CNP Date of Service: 12/29/24 Procedure(s): MR cervical spine wo/w con Accession Number(s): [id number] cc: Physician,None ; Argelia Lassiter CNP~ ADDENDUMThis document has been electronically signed by: Ming Serrano MD on 01/01/2025 10:14:25 ADDENDUM: Receipt of this report by the clinical staff was confirmed with Lucinda Jones, flight communications officer on Jan 01, 2025 10:28:00 EDT. This document has been electronically signed by: eMllissa Dawn on 01/01/2025 10:29:22 Addendum Dictated By: Ming Serrano MD Addendum Signed By: <Electronically signed by Mnig Serrano MD in [place]> 01/01/25 1029 Addendum Cosigned By: DD/ TD/TT: 01/01/25 CLINICAL HISTORY: MS MR cervical spine with and without gadolinium Comparison: MR/SR - MR CERVICAL SPINE WO/W CON - 07/15/23 10:36 EST Findings: There is a new focus of T2 signal prolongation within the upper cervical cord at the C2-C3 level, measuring up to 5 mm in craniocaudal dimension. This lesion exhibits abnormal postcontrast enhancement. Previous lesion at the C6 level is less apparent. No additional abnormal enhancement. Normal vertebral body alignment. Mild disc space narrowing with small posterior disc protrusions from C4 through C7, otherwise no significant degenerative changes. No acute fractures or pathologic bone lesions. Neck soft tissues are unremarkable. Impression: There is a new, active white matter lesion within the cervical cord at the C2-C3 level as detailed above. This document has been electronically signed by: Ming Serrano MD on 01/01/2025 10:14:25 [place] [id number] Magnetic Resonance Report Signed Patient: Eleni Payne MR#: [id number] : 1990 Acct:[id number] Age/Sex: 34 / F ADM Date: 01/05/25 Loc: HO.MRI Attending Dr: Argelia Lassiter CNP Ordering Physician: Argelia Lassiter CNP Date of Service: 01/05/25 Procedure(s): MR head/brain wo/w con Accession Number(s): [id number] cc: Physician,None ; Argelia Lassiter CNP~ CLINICAL HISTORY: MS MR brain with and without contrast. COMPARISON: MR brain dated 07/15/23 at 10:36 EST FINDINGS: No abnormal diffusion restriction in the brain parenchyma or extra-axial spaces. Multiple T2/FLAIR hyperintense lesions present within the cerebral hemispheres bilaterally several of these are periventricular extending perpendicular to the corpus callosum. There are peripherally enhancing lesions within the anterior left frontal lobe, left temporal lobe in the middle cranial fossa, posterior right parietal lobe and periventricular white matter along the posterior aspect of the right ventricle. These are new since prior imaging. Lesion within the left frontal lobe has complete ring-like enhancement with bright T2 internal signal suggestive of tumefactive MS/necrosis. There is adjacent edema. Additional lesion within the middle cranial fossa in the left temporal lobe also demonstrates internal bright T2 signal suggestive of tumefactive MS/necrosis. No intracranial hemorrhage or abnormal extra-axial fluid collection. No hydrocephalus. Basilar cisterns are patent. Cerebellar hemispheres and cerebellar vermis are normal. Fourth ventricle is normal. No brainstem abnormality is identified. Intracranial flow voids are patent. Visualized paranasal sinuses are clear. Small amount of fluid present within the right mastoid air cells. IMPRESSION: 1. Multiple new T2/FLAIR lesions within the bilateral cerebral hemispheres consistent with new demyelinating disease. Several of these demonstrate peripheral enhancement consistent with acute inflammation. 2. 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 These are new since prior imaging. This document has been electronically signed by: Thomas Wilson MD on 01/05/2025 17:47:06 ------- 08/06/21 MRI Brain and C spine: multiple areas of hyperintense T2 and FLAIR signal in the supratentorial and infratentorial regions as described above, in a distribution consistent with demyelination. There is no restricted diffusion or abnormal enhancement to suggest active plaques. 3. The right cerebellar tonsillar tip is low-lying with a pointed configuration which may be consistent with a Chiari I malformation. 07/13/23 MRI brain and C spine shows stable lesions in brain and cervical cord . some lesions are smaller. No new enhancing lesions. Labs 04/2024 JCV Antibody: 0.20 Assessment & Plan Assessment & Plan (1) Multiple sclerosis: Code(s): G35 - Multiple sclerosis Category: Medical Plan: 34-year-old with MS initially treated with Tecfidera (in [place]), but stopped medication due to side effects. She was then prescribed Tysabri in 2021, but delayed treatment and did not start medication until 11/2022 which she continued monthly until 09/2024. She stopped Tysabri as she felt unwell for about a week after the infusion. She started with new symptom of RUE earlier this month. Lab and MRI results reviewed with patient: MRI C-spine on 12/29/2024 showed a new, active lesion at C2-C3. 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 She was in the process of starting Kesimpta, however given multiple new and active lesions to brain and spinal cord on MRI and new symptom of RUE numbness, recommend starting Ocrevus. She was agreeable, use/side effects reviewed. Risks of delaying treatment reviewed, including permanent disability. She completed prednisone taper. She did not receive IV Solu-Medrol 1000mg x5 days yet, will follow up to check status and have this arranged to start as soon as possible. Will complete FMLA forms. Start: Ocrevus 300mg IV every 2 weeks x2 doses Subsequent doses: Ocrevus 600mg IV every 6 months Plan Was Given IV Solumedrol in [facility] and did not like the side effects and stopped Tried Tecfidera in [place], stopped due to side effects Tried Tysabri Meds tried for mood: paroxetine, fluoxetine Orders: Referrals Infusion Center Notification G35 - Multiple sclerosis Medications: New ocrelizumab (Ocrevus) 300 mg (10 mL) IV Q2W 2 doses Coding Level of Care Code Est Pt Level 5 (42728) Diagnoses Multiple sclerosis G35
--- OUTSIDE RECORDS SUMMARY | 2025-01-09 14:02 | XMS_ITS | Clinical Summary ---
Author Organization [facility] [address] [place] [address] [place] [phone] Phone Care Team Providers Care Money Order Clerk Name Role Phone Mary Carmen Kendall MD Primary Care Provider [phone] Allergies No known active allergies Medications cholecalciferol [...] Care Team Description 12/06/2024 Telephone Adult Medicine [facility] [address] [place] [phone] Mary Carmen Kendall MD Back Pain from [...] - 3-dose SCD M series) 08/11/2018 07/14/2018 Social Influencers of Health Screening 05/23/2022 COVID-19 Vaccine (1 - 2023-2 5 season) 2024 Depression Screening 06/20/2024 Influenza Vaccine (#1) 2025 Cholesterol Screening (Lipid [...] Maintenance Results * Lipid panel (10/20/2022) Pathologist [facility] LDL/HDL Ratio 2 0 - 4 Triglycerides 31 0 - 150 mg/dL Cholesterol 104 0 - 200 mg/dL HDL 54 >=40 mg/dL LDL Cholesterol 44 0 - 100 mg/dL Blood Venous blood specimen / Unknown Historical Provider LAB BLOOD ORDERABLES Luba l Result * HIV Screening (12/03/2020) HIV Screening Abstracted Historical Provider HEALTH MAINTENANCE Final Result * Hepatitis C Screening (12/03/2020) Pathologist [facility] Hepatitis C Screening Abstracted Historical Provider HEALTH MAINTENANCE Final Result from Last 3 Months or Most Recently Relevant to Health Maintenance Insurance [facility] [employer] Care Teams Money Order Clerk Relationship Specialty Start Date End Date Mary Carmen Kendall MD PCP - General Internal Medicine 04/19/22
== END 2025-01-09 14:05 | disposition home or self-care (01) ==
LOC: HO.HSM 13:28
PROVIDERS: Visit Provider Registered Nurse
DX: G35 Multiple sclerosis (principal)
CPT/HCPCS: 99214

== ENCOUNTER → 2025-01-09 13:28 | Outpatient (BNVA) | payer OTHER, SELFPAY | PROVIDERS: Visit Provider Registered Nurse | DX: Z71.2 Person consulting for explanation of examination or test findings (principal); G35 Multiple sclerosis | CPT/HCPCS: 99212 ==

== ENCOUNTER 2025-01-18 09:02 | Outpatient (RCR) | payer OTHER, SELFPAY | END 2025-02-27 08:27 | disposition home or self-care (01) | LOC: HO.PT 09:02 | PROVIDERS: Visit Provider Registered Nurse | DX: G35 Multiple sclerosis (principal) | CPT/HCPCS: 97110; 97162 ==

== ENCOUNTER 2025-01-18 11:00 | Outpatient (RCR) | payer OTHER, SELFPAY ==
[2025-01-14 11:52] VITALS: BP 104/72; PULSE 88; RESP 16; TEMP 36.6; O2SAT 100
[2025-01-14] MEDS: methylPREDNISolone Sod Succ 1,000 MG in 0.9 % Sodium Chloride 50 ML 50 MG IV (12:02)
[2025-01-15 13:02] VITALS: BP 112/68; PULSE 100; RESP 16; TEMP 36.6; O2SAT 98
[2025-01-15] MEDS: methylPREDNISolone Sod Succ 1,000 MG in 0.9 % Sodium Chloride 50 ML 50 MG IV (13:10)
[2025-01-16 12:06] VITALS: BP 100/53; PULSE 69; RESP 16; TEMP 36.6; O2SAT 98
[2025-01-16] MEDS: methylPREDNISolone Sod Succ 1,000 MG in 0.9 % Sodium Chloride 50 ML 66 MG IV (12:11)
[2025-01-17 11:49] VITALS: BP 108/40; PULSE 60; RESP 16; TEMP 36.6; O2SAT 100
[2025-01-17] MEDS: methylPREDNISolone Sod Succ 1,000 MG in 0.9 % Sodium Chloride 50 ML 66 MG IV (11:53)
[2025-01-18 10:59] VITALS: BP 102/53; PULSE 57; RESP 16; TEMP 36.7; O2SAT 99
[2025-01-18] MEDS: methylPREDNISolone Sod Succ 1,000 MG in 0.9 % Sodium Chloride 50 ML 66 MG IV (11:06)
== END 2025-01-18 12:07 | disposition home or self-care (01) ==
LOC: HO.INF 11:00
PROVIDERS: Visit Provider Registered Nurse
DX: G35 Multiple sclerosis (principal)
CPT/HCPCS: 96365; J2919

== ENCOUNTER 2025-01-31 11:08 | Outpatient (REF) | payer OTHER, SELFPAY ==
--- OUTSIDE RECORDS SUMMARY | 2025-01-31 12:17 | XMS_ITS | Clinical Summary ---
Author Organization [facility] [address] [place] [address] [place] [phone] Phone Care Team Providers Care Tetryl Wringer Operator Name Role Phone Mary Carmen Kendall MD Primary Care Provider [phone] Allergies No known active allergies Medications cholecalciferol [...] Care Team Description 12/06/2024 Telephone Adult Medicine [facility] [address] [place] [phone] Mary Carmen Kendall MD Back Pain from [...] Maintenance Results * Lipid panel (10/20/2022) Pathologist [facility] LDL/HDL Ratio 2 0 - 4 Triglycerides 31 0 - 150 mg/dL Cholesterol 104 0 - 200 mg/dL HDL 54 >=40 mg/dL LDL Cholesterol 44 0 - 100 mg/dL Blood Venous blood specimen / Unknown Historical Provider LAB BLOOD ORDERABLES Luba l Result * HIV Screening (12/03/2020) HIV Screening Abstracted Historical Provider HEALTH MAINTENANCE Final Result * Hepatitis C Screening (12/03/2020) Pathologist [facility] Hepatitis C Screening Abstracted Historical Provider HEALTH MAINTENANCE Final Result from Last 3 Months or Most Recently Relevant to Health Maintenance Insurance [facility] [employer] Care Teams Tetryl Wringer Operator Relationship Specialty Start Date End Date Mary Carmen Kendall MD PCP - General Internal Medicine 04/19/22
[2025-02-03 23:43] LABS: Quantiferon TB Gold Plus 1 NEGATIVE (NEGATIVE); TB Test (QFT) Mitogen -Nil 7.09 IU/mL; TB Test (QFT) Nil 0.02 IU/mL; TB Test (QFT) Plus TB1 -Nil 0.00 IU/mL; TB Test (QFT) Plus TB2 -Nil 0.00 IU/mL
== END 2025-01-31 11:09 | disposition home or self-care (01) ==
LOC: HO.LAB 11:08
PROVIDERS: Visit Provider Registered Nurse
DX: Z11.1 Encounter for screening for respiratory tuberculosis (principal)
CPT/HCPCS: 36415; 86480

== ENCOUNTER 2025-02-27 10:39 | Outpatient (AMB) | payer OTHER, SELFPAY ==
--- OUTSIDE RECORDS SUMMARY | 2024-08-27 09:00 | XMS_ITS ---
Author Organization Star Dickerson III, MD Address [address] [place] [address] Care Team Providers Care Director Project Management Name Role Phone PaulGtjose m Primary Care Provider Unavailabl e Star Dickerson Unavailable [phone] Gunnar GEE, [facility] Unavailable Unavailabl e Allergies Allergen (clinical drug ingredient) Drug/Non Drug Allergy documented on EMR Reaction Allergy Type Onset Date Status No Known Drug Allergy Unknown Drug Allergy Active REASON FOR VISIT Tysabri infusion Medications Medication SIG (Take, Route, Frequency, Duration) Notes Start Date End Date Status Tysabri 300 MG/15ML as directed Intraven ous every 4 weeks Active Amitriptyline HCl 25 MG Oral Active PARoxetine HCl 40 MG TAKE 1 TABLET BY MO UTH EVERY DAY IN THE MORNING FOR 30 DAYS Oral Active LORazepam 1 MG Oral Activ e D3-50 1.25 MG (27346 UT) Oral Active Social History Tobacco Use: Social History Observation Description Date Details (start date - stop date) Former Smoker NA - NA Sex Assigned At : Social History Observation Description Sex Assigned At Female Tobacco Use/Smoking Question Answer Notes Patient is a former smoker How long has it been since y ou last smoked? 1-5 years Additional Findings: Tobacco User Light cigarett e smoker ((1-9 cigs/day) Additional Findings: Tobacco Non-User Ex-cigaret te smoker Vital Signs Blood pressure systolic 119 mm Hg 08/28/19 25 Blood pressure diastolic 71 mm Hg 025 Heart Rate 87 /min 08/27/2024 Height 61 in 08/27/2024 Weight 170 lbs 08/27/2024 BMI 32.12 kg/m2 08/27/2024 Encounters Encounter Location Date Provider Diagnosis Star Dickerson III, MD [address] [place] [address] [place] [address] 08/27/2024 Star Dickerson Multiple sclerosis G35 ; Restless leg syndrome G25.81 ; ADD (attention deficit disorder) F98.8 and Former smoker Z87.891 Assessments Encounter Date Diagnosis (ICD Code) Assessment Notes Treatment Notes Treatment Clinical Notes 08/27/2024 Multiple sclerosis (ICD-10 - G35) She was treated today with the 300 mg Tysabri over 3 hours without incident. She tolerated it well and will return in 1 month. 08/27/2024 Restless leg syndrome (ICD-10 - G25.81) Current therapy was continued without change. 08/27/2024 ADD (attention deficit disorder) (ICD-10 - F98.8) Current therapy was continued without change. 08/27/2024 Former smoker (ICD-10 - Z87.891) She has a plan to prevent relapse in times of stress and illness. Plan Of Treatment Medication Medication Name Sig Start Date Stop Date Notes Tysabri 300 MG/15ML as directed Intraven ous every 4 weeks Amitriptyline HCl 25 MG Oral PARoxetine HCl 40 MG TAKE 1 TABLET BY MO UTH EVERY DAY IN THE MORNING FOR 30 DAYS Oral LORazepam 1 MG Oral D3-50 1.25 MG (31169 UT) Oral Next Appt Details Follow Up: 4 Weeks, Reason: Tysabri no tests Procedure Notes * Category Sub-Category Detail Notes Chemotherapy Start and End Time: start, 1:00 pm, end, 2:00 pm Site: left hand Consent: verbal consent was o btained prior to procedure Medications given: Tysabri 300 mg Monitored by: STEPH Celis port flush none route IV Progress Notes * KARYNA MORENOADOB:1990 ( 33 yo F)Acc No.[id number]:08/27/2024 Patient: AZALIA LEPE Provider: Chrissy Dickerson MD :1990 A ge:33 Y S ex:Female Date:08/27/2024 Address: [address], [id number] Pcp:David Miller Subjective: * Chief Complaints: * T ysabri infusion * HPI: C OVID-19 Screening: She returns for another infusion of Tysabri monoclonal antibody therapy for chronic relapsing multiple sclerosis. Since her last visit she has been healthy and well. She had no new complaints today. Her examination was unremarkable. Questions H ave you had any new onset fever, chills, cough, congestion, sore throat, shortness of breath, muscle aches? N o * ROS: G eneral/Constitutional: pain o nly normal aches and pains. C hills d enies.?Fatigue a dmits. F ever d enies. E NT: Decreased hearing d enies. R espiratory: Cough d enies. C ardiovascular: Chest pain with exertion d enies. D yspnea on exertion?denies. S hortness of breath d enies. G astrointestinal: Constipation d enies. D ecreased appetite d enies.?Diarrhea d enies. H eartburn d enies. N ausea d enies. R ectal bleeding?denies. V omiting d enies. H ematology: bruising d enies. p etechiae d enies. S wollen glands n one have been noted. G enitourinary: Frequent urination a t night. M usculoskeletal: Muscle aches d enies. P ainful joints d enies. S ciatica d enies. W eakness d enies. S kin: Itching d enies. R gretchen d enies. S kin lesion(s)?denies. N eurologic: Difficulty speaking d enies. D izziness d enies.?Headache d enies. L ow back pain d enies. P sychiatric: Depressed mood w hich is mild. * Medical History: * Surgical History: N one * Hospitalization/Major Diagno stic Procedure: D enies Past Hospitalization * Family History: F ather: alive. M other: alive. P aternal Grand Father: , diagnosed with DM.?Paternal Grand Mother: , diagnosed with DM. M aternal Grand Mother: alive, breast cancer. 1 brother(s) , 1 sister(s) - healthy. 2 son(s) , 2 daughter(s) - healthy. . * Social History: T obacco Use: T obacco Use/Smoking P atient is a f ormer smoker H ow long has it been since you last smoked??1-5 years A dditional Findings: Tobacco User L ight cigarette smoker ((1-9 cigs/day) A dditional Findings: Tobacco Non-User E x-cigarette smoker * Medications: T akingD3-50 1.25 MG (44257 UT) Capsule Oral LORazepam 1 MG Tablet Oral Amitriptyline HCl 25 MG Tablet Oral Tysabri 300 MG/15ML Concentrate as directed Intravenous every 4 weeks PARoxetine HCl 40 MG Tablet TAKE 1 TABLET BY MOUTH EVERY DAY IN THE MORNING FOR 30 DAYS Oral Medication List reviewed and reconciled with the patientTaking D3- 50 1.25 MG (32534 UT) Capsule Oral Taking LORazepam 1 MG Tablet Oral Taking Amitriptyline HCl 25 MG Tablet Oral Taking Tysabri 300 MG/15ML Concentrate as directed Intravenous every 4 weeks Taking PARoxetine HCl 40 MG Tablet TAKE 1 TABLET BY MOUTH EVERY DAY IN THE MORNING FOR 30 DAYS Oral Medication List reviewed and reconciled with the patient * Allergies: N o Known Drug Allergyno[Allergies Verified] Objective: * Vitals: H t: 61, Wt: 170, BMI:32.12, BP: 119/71, HR: 87, Ht-cm: 154.94, Wt-k.11. * Examination: G eneral Examination: GENERAL APPEARANCE: p leasant, well nourished, well developed, in no acute distress, calm and relaxed. HEAD: a traumatic, normocephalic. EYES: e hyacinth, perrla, anicteric, conjugate. EARS: n ormal. NOSE: s eptum intact. ORAL CAVITY: n ormal, unremarkable. NECK/THYROID: n o jugular venous distention, no carotid bruit, thyroid normal. LYMPH NODES: n o enlarged lymph nodes,spleen normal. SKIN: n o suspicious lesions, anicteric. HEART: n o clicks, gallops, murmurs, or rubs, regular rhythm, S1, S2 normal, no s3, or vascular bruits. LUNGS: c lear to auscultation . BREASTS: N ot examined. ABDOMEN: b owel sounds normal, no ascites, no organomegaly, no mass. RECTAL EXAM: n ot examined. MUSCULOSKELETAL: e xtremities unremarkable, no clubbing, cyanosis or edema. PERIPHERAL PULSES: n ormal. NEUROLOGIC: a lert and oriented, cranial nerves 2-12 grossly intact, deep tendon reflexes 2+ symmetrical, motor strength normal upper and lower extremities, sensory exam intact. PSYCH: a lert, oriented, Sleepy. Assessment: * Assessment: 1. M ultiple sclerosis - G35 (Primary) N otes :She was treated today with the 300 mg Tysabri over 3 hours without incident. She tolerated it well and will return in 1 month. 2 . R estless leg syndrome - G25.81 N otes :Current therapy was continued without change. 3 . A DD (attention deficit disorder) - F98.8 N otes :Current therapy was continued without change. 4 . F ormer smoker - Z87.891 N otes :She has a plan to prevent relapse in times of stress and illness. Plan: * Treatment: * Procedures: C hemotherapy: Start and End Time: s tart, 1:00 pm, end, 2:00 pm. Site: [facility]. Consent: v erbal consent was obtained prior to procedure.? Medications given: T ysabri 300 mg. Monitored by: STEPH Robins. port flush n one. route I V. * Procedure Codes: 9 6413 CHEMO, IV INFUSION, 1 [id number] NATALIZUMAB INJECTION * Preventive Medicine: Counseling: C are goal follow-up plan: Counseling for abnormal BMI given Y es Above Normal BMI Follow-up D ietary management education, guidance, and counseling, Dietary needs education, Exercise promotion: strength training, Exercise promotion: stretching, Feeding regime, Giving encouragement to exercise, Lifestyle education regarding diet, Nutrition / feeding management, Nutrition therapy, Prescribed activity/exercise education, Prescribed diet education, Prescribed dietary intake, Special diet education, Weight monitoring , Intervention, Order not done: Medical or Other reason not done S moking/Tobacco Use Patient counseled on the dangers of tobacco use and urged to quit. 0 08/27/2024 * Follow Up: 4 Weeks (Reason: Tysabri no tests) * Images: * Sign off status: Completed true * Provider: Chrissy Dickerson MD Date: 0 08/27/2024 Generated for Cayetano leonard/Renetta/Maguiitting on: 0 02/27/2025 01:14 PM EDT History and Physical Notes * HPI (History of Present Illness) Category Sub-Category Detail Notes COVID-19 Screening Questions Have you had any new onset fever, chills, cough, congestion, sore throat, shortness of breath, muscle aches?: No Examination Category Sub-Category Detail Notes General Examination GENERAL APPEARANCE: pleasant , well nourished, well developed, in no acute distress, calm and relaxed HEAD: atraumatic, normocep halic EYES: eomi, perrla, anicte zion, conjugate EARS: normal NOSE: septum intact NECK/THYROID: no jugular venous di stention, no carotid bruit, thyroid normal HEART: no clicks, gallops, murmurs, or rubs, regular rhythm, S1, S2 normal, no s3, or vascular bruits LUNGS: clear to auscultatio n ABDOMEN: bowel sounds normal, no ascites, no organomegaly, no mass NEUROLOGIC: alert and oriented, cranial nerves 2-12 grossly intact, deep tendon reflexes 2+ symmetrical, motor strength normal upper and lower extremities, sensory exam intact SKIN: no suspicious lesion s, anicteric PERIPHERAL PULSES: normal BREASTS: Not examined MUSCULOSKELETAL: extremities unremark able, no clubbing, cyanosis or edema LYMPH NODES: no enlarged lymph no patrick,spleen normal RECTAL EXAM: not examined PSYCH: alert, oriented, Sle epy ORAL CAVITY: normal, unremarkable
--- OUTSIDE RECORDS SUMMARY | 2024-09-20 09:21 | XMS_ITS ---
Author Organization Star Dickerson III, MD Address [address] [place] [address] [place] [address] Care Team Providers Care Pan Puller Name Role Phone PaulDavid Primary Care Provider Star Burger Unavailable [phone] Gunnar GEE, [facility] Unavailable Unavailabl e REASON FOR VISIT Message Social History Sex Assigned At : Social History Observation Description Sex Assigned At Female Encounters Encounter Location Date Provider Diagnosis Star Dickerson III, MD [address] [place] [address] [place] [address] 09/20/2024 Star Dickerson Plan Of Treatment No Information Progress Notes * SHAWNA MORENOCHARLESB:1990 ( 33 yo F)Acc No.[id number]:09/20/2024 Patient: AZALIA LEPE :1990 A ge:33 Y S ex:Female Address:[place], [address] * true * Date: Generated for Printi ng/Faxing/eTransmitting on: 0 02/27/2025 01:14 PM EDT
--- OUTSIDE RECORDS SUMMARY | 2024-09-24 14:00 | XMS_ITS ---
Author Organization Star Dickerson III, MD Address [address] [facility] [address] [place] [address] Care Team Providers Care Mechanical Engineering Teacher Name Role Phone David Miller Primary Care Provider Star Burger [phone] Gunnar GEE, [facility] Unavailable Unavailabl e REASON FOR VISIT Tysabri infusion Social History Sex Assigned At : Social History Observation Description Sex Assigned At Female Encounters Encounter Location Date Provider Diagnosis Star Dickerson III, MD [address] [place] [address] [place] [address] 09/24/2024 Star Dickerson Plan Of Treatment No Information Progress Notes * LINDA MORENOB:1990 ( 34 yo F)Acc No.[id number]:09/24/2024 Patient: AZALIA LEPE Provider: Chrissy Dickerson MD :1990 A ge:33 Y S ex:Female Date:09/24/2024 Address:[id number] Pcp:David Miller Subjective: * Chief Complaints: * 1 . Tysabri infusion. * Medical History: Objective: * Vitals: Assessment: Plan: * Treatment: * Images: * The named appointment provid er may or may not be the originator of this progress note, and it is not deemed complete until electronically signed by the appointment provider. Sign off status: Pending * Provider: Chrissy Dickerson MD Date: 0 09/24/2024 Generated for Cayetano leonard/Renetta/Tashi on: 0 02/27/2025 01:14 PM EDT
--- OUTSIDE RECORDS SUMMARY | 2024-10-22 14:30 | XMS_ITS ---
Author Organization Star Dickerson III, MD Address [address] [facility] [address] [address] [address] Care Team Providers Care Senior Pharmacy Technician Name Role Phone David Miller Primary Care Provider Star Burger [phone] Gunnar GEE, [facility] Unavailable Unavailabl e REASON FOR VISIT Tysabri infusion Social History Sex Assigned At : Social History Observation Description Sex Assigned At Female Encounters Encounter Location Date Provider Diagnosis Star Dickerson III, MD [address] [place] [address] [place] [address] 10/22/2024 Star Dickerson Plan Of Treatment No Information Progress Notes * LINDA MORENOB:1990 ( 34 yo F)Acc No.[id number]:10/22/2024 Patient: AZALIA LEPE Provider: Chrissy Dickerson MD :1990 A ge:33 Y S ex:Female Date:10/22/2024 Address:[id number] Pcp:David Miller Subjective: * [...] * Provider: Chrissy Dickerson MD Date: 0 10/22/2024 Generated for Cayetano leonard/Renetta/Tashi on: 0 02/27/2025 01:14 PM EDT
--- OUTSIDE RECORDS SUMMARY | 2024-11-19 14:00 | XMS_ITS ---
Author Organization Star Dickerson III, MD Address [address] [facility] [address] [address] [place] [address] Care Team Providers Care Process Development Engineer Name Role Phone David Miller Primary Care Provider Star Burger [phone] Gunnar GEE, [facility] Unavailable Unavailabl e REASON FOR VISIT Tysabri infusion Social History Sex Assigned At : Social History Observation Description Sex Assigned At Female Encounters Encounter Location Date Provider Diagnosis Star Dickerson III, MD [address] [place] [address] [place] [address] 11/19/2024 tSar Dickerson Plan Of Treatment No Information Progress Notes * LINDA MORENOB:1990 ( 34 yo F)Acc No.[id number]:11/19/2024 Patient: AZALIA LEPE Provider: Chrissy Dickerson MD [...] 11/19/2024 Generated for Cayetano leonard/Renetta/Tashi on: 0 02/27/2025 01:14 PM EDT
--- NOTE | 2025-02-27 10:44 | MHC.OFFVIS ---
Intake Visit Reasons: 2 Months after ocrevus Accompanied by: Significant Other Allergies No Known Allergies Allergy (Verified 01/09/25 13:31) HPI Comments Details: She was doing okay. She had had IV Solumedrol x5 days at the end of 12/2024. Sh had first dose of Ocrevus on 02/05/2025 and [place] [facility] [place] During the first infusion, she got some dry mouth and itching across chest that resolved with Benadryl 50mg PO. No issues with second infusion. RUE numbness was better. She was having some back pain, worse with increased activity. No falls. Gabapentin at bedtime was helping with body pains. Focus and ability to concentrate was better with Adderall twice a day. She was taking some classes at [employer] [employer] [employer]. Mood was up and down, ongoing stress. Sleep was okay lately. She started with R hand numbness at the beginning of 12/2024 and was given prednisone taper which did not help. C-spine MRI on 12/29/2024 showed new, enhancing lesion at C2-3 and IV Solu-Medrol 1000mg x5 days was ordered. More fatigued, decreased energy, trouble focusing and concentrating. Some headaches and blurry vision. Previously was working full-time, FMLA forms completed. Stopped Tysabri in 09/2024, felt better after stopping medication. She felt more normal, not as tired or drained. Headaches were not as often or severe, may be triggered by warm weather. She was still having pain, particularly to upper back and shoulder, some R ankle pain, and felt like ankle may give out at times. No falls. Still gaining weight. She was concerned about possible side effects of MS medications, including PML, but was agreeable to trying Kesimpta. She tried Tecfidera in [place], but stopped medication due to side effects.?She works at [employer]. She was on monthly Tysabri and said feels unwell for a week or more after, pains in ankles, and gaining weight. She wanted to stop it for 2 months and see if symptoms are from medication. Numbness in legs better. Was having almost daily headaches with some photophobia, sonophobia, and occasional clouding of vision. Stopped amitriptyline. Tired and fatigued all the time, trouble focusing. Amantadine did not help and stopped taking. Adderall works better. Many stressors, anxious and depressed. Lorazepam helps with anxiety. She has four children, youngest has ODD. MRI in 01/2023 showed multiple new lesions on brain MRI and C-spine MRI as she delayed starting Tysabri by 15 months. First dose of Tysabri was 11/2022. After medication was ordered in 08/2021, she did not return for follow up for 7 months until 04/2022 when she was having more tingling in left arm and leg and had not yet started medication. She has numbness from the waist down, trouble walking, mental clouding, headaches, dizziness, and nausea. Worsening depression and anxiety following the murder of her cousin in 2020 and was having to go to court. She was diagnosed with MS at [facility] in 2019 and was hospitalized because of slurred speech, right facial droop and right-sided paresthesia that then extended to both sides and went up to the belly button. She had MRIs and lumbar puncture done and was given an IV Solumedrol infusion. She said she had a reaction to it with tachycardia. She was then put on Tecfidera and didn't like how she felt and stopped all medications. [facility] Medical History (Updated 02/27/25 @ 10:50 by Argelia Lassiter CNP) Migraine Carpal tunnel syndrome, bilateral upper limbs ADD (attention deficit disorder) Anxiety and depression Multiple sclerosis Review of Systems Const Denies chills, Denies daytime sleepiness, Reports difficulty sleeping, Reports fatigue, Denies fever(s), Denies frequent falls, Reports headache(s), Denies increased appetite, Denies poor appetite, Denies snoring, Denies weakness, Denies weight gain and Denies weight loss Eyes Denies loss of vision ENT Denies vertigo, Denies dizziness, Reports headache(s) and Reports neck pain Card Denies chest pain at rest, Denies chest pain with activity, Denies syncope, Denies leg edema, Denies palpitations, Denies dyspnea and Denies dyspnea on exertion Resp Denies cough, Denies dyspnea, Denies dyspnea on exertion and Denies snoring GI Denies abdominal pain, Denies constipation, Denies heartburn, Denies diarrhea and Denies nausea Denies urinary frequency, Denies urinary incontinence and Denies urinary urgency Musc Denies abnormal gait, Reports back pain, Denies myalgias, Reports arthralgias, Reports neck pain, Reports numbness and Reports tingling Neuro Denies abnormal gait, Denies vertigo, Denies dizziness, Denies syncope, Denies frequent falls, Reports headache(s), Denies lack of coordination, Denies loss of vision, Denies memory loss, Reports numbness, Denies Other visual disturbances, Denies restless legs, Denies seizure-like activity, Reports tingling, Denies paresthesias, Denies tremor(s) and Denies weakness Psych Reports anxiety, Reports depression, Denies auditory hallucinations, Denies memory loss and Denies visual hallucinations Endo Reports fatigue and Denies palpitations Physical Exam Const Other: General Appearance:? normal, in no acute distress. Heart:? S1, S2 normal, no murmurs. Lungs:? clear anteriorly and posteriorly. Musculoskeletal:? normal. Extremities:? no edema. Psych:? alert, oriented, cognitive function intact, cooperative with exam. Neuro Other: Abnormal Neurological Findings:?Generalized UE weakness, R > L. KJs 3+ Mental Status: alert and oriented X 3. Normal attention, orientation, memory, and affect. Cranial Nerves: Pupils are equal, round, and reactive to light. External ocular muscles are intact. Visual almaguer are full, no ptosis. Face is symmetrical, no facial weakness or droop. Facial sensations are normal. Tongue protrudes in midline. Palate elevates symmetrically. Shoulder shrugging is normal Motor Examination: As above, otherwise normal muscle tone, bulk and strength. No atrophy or fasciculations. No drift of the extended upper extremities. DTR 2+, KJs 3+. Plantars are flexor. Straight Leg Raisin degrees. Sensory Exam: Normal light touch, temperature, pinprick, vibration, and joint-position sensations. Rhomberg sign is absent. Coordination: No ataxia. No titubation. Mkvnkg-in-agyr, zhpw-pcub-lmjv test, and rapid alternating movements were normal. Gait Exam: Within normal limits. Cerebellar Signs: Klntlf-yc-sosz and gibd-ri-cwgx is normal. No dysdiadochokinesia. Extrapyramidal System: No tremor, rigidity with normal facial expressions. No bradykinesia. No bradyphrenia. Normal arm swing and posture. No propulsion or retropulsion. Speech: Normal. No dysphasia or dysarthria. Results Reviewed Results Reviewed: Laboratory Tests 12/07/24 15:01 WBC 7.5 RBC 4.50 Hgb 12.6 Hct 37.4 MCV 83.1 MCH 28.0 MCHC 33.7 RDW 14.3 Plt Count 215 MPV 11.6 Immature Gran % (Auto) 0.3 Neut % (Auto) 58.6 Lymph % (Auto) 32.3 [place] % (Auto) 6.0 Eos % (Auto) 2.4 Baso % (Auto) 0.4 Lymph # (Auto) 2.4 [place] # (Auto) 0.5 Eos # (Auto) 0.2 Baso # (Auto) 0.0 Abs Immat Gran (auto) 0.02 Absolute Neuts (auto) 4.4 Absolute Nucleated RBC 0.000 Nucleated RBC % (auto) 0.0 Total Bilirubin 0.5 Direct Bilirubin 0.2 AST 25 ALT 23 Alkaline Phosphatase 79 Total Protein 7.1 Albumin 4.5 IgG Total 1117 IgA Total 298 IgM 96 Hep Bs Antigen Negative Hep Bs Antibody NONREACTIVE Hep B Core Total Ab Nonreactive DANAE Virus Antibody NEGATIVE DANAE Virus Ab Index VANESSA 0.16 DANAE Virus Ab Inhib Assay [place] [id number] Magnetic Resonance Report Signed with Addenda Patient: Eleni Payne MR#: [id number] : 1990 Acct:[id number] Age/Sex: 34 / F ADM Date: 12/29/24 Loc: HO.MRI Attending Dr: Argelia Lassiter CNP Ordering Physician: Argelia Lassiter CNP Date of Service: 12/29/24 Procedure(s): MR cervical spine wo/w con Accession Number(s): [id number] cc: Physician,None ; Argelia Lassiter CNP~ ADDENDUMThis document has been electronically signed by: Ming Serrano MD on 01/01/2025 10:14:25 ADDENDUM: Receipt of this report by the clinical staff was confirmed with Lucinda Jones, security officer supervisor on Jan 01, 2025 10:28:00 EDT. This document has been electronically signed by: Mellissa Dawn on 01/01/2025 10:29:22 Addendum Dictated By: Ming Serrano MD Addendum Signed By: <Electronically signed by Ming Serrano MD in [place]> 01/01/25 102 Addendum Cosigned By: DD/ TD/TT: 01/01/25 CLINICAL HISTORY: MS MR cervical spine with and without gadolinium Comparison: MR/SR - MR CERVICAL SPINE WO/W CON - 07/15/23 10:36 EST Findings: There is a new focus of T2 signal prolongation within the upper cervical cord at the C2-C3 level, measuring up to 5 mm in craniocaudal dimension. This lesion exhibits abnormal postcontrast enhancement. Previous lesion at the C6 level is less apparent. No additional abnormal enhancement. Normal vertebral body alignment. Mild disc space narrowing with small posterior disc protrusions from C4 through C7, otherwise no significant degenerative changes. No acute fractures or pathologic bone lesions. Neck soft tissues are unremarkable. Impression: There is a new, active white matter lesion within the cervical cord at the C2-C3 level as detailed above. This document has been electronically signed by: Ming Serrano MD on 01/01/2025 10:14:25 [place] [id number] Magnetic Resonance Report Signed Patient: Eleni Payne MR#: [id number] : 1990 Acct:[id number] Age/Sex: 34 / F ADM Date: 01/05/25 Loc: HO.MRI Attending Dr: Argelia Lassiter CNP Ordering Physician: Argelia Lassiter CNP Date of Service: 01/05/25 Procedure(s): MR head/brain wo/w con Accession Number(s): [id number] cc: Physician,None ; Argelia Lassiter CNP~ CLINICAL HISTORY: MS MR brain with and without contrast. COMPARISON: MR brain dated 07/15/23 at 10:36 EST FINDINGS: No abnormal diffusion restriction in the brain parenchyma or extra-axial spaces. Multiple T2/FLAIR hyperintense lesions present within the cerebral hemispheres bilaterally several of these are periventricular extending perpendicular to the corpus callosum. There are peripherally enhancing lesions within the anterior left frontal lobe, left temporal lobe in the middle cranial fossa, posterior right parietal lobe and periventricular white matter along the posterior aspect of the right ventricle. These are new since prior imaging. Lesion within the left frontal lobe has complete ring-like enhancement with bright T2 internal signal suggestive of tumefactive MS/necrosis. There is adjacent edema. Additional lesion within the middle cranial fossa in the left temporal lobe also demonstrates internal bright T2 signal suggestive of tumefactive MS/necrosis. No intracranial hemorrhage or abnormal extra-axial fluid collection. No hydrocephalus. Basilar cisterns are patent. Cerebellar hemispheres and cerebellar vermis are normal. Fourth ventricle is normal. No brainstem abnormality is identified. Intracranial flow voids are patent. Visualized paranasal sinuses are clear. Small amount of fluid present within the right mastoid air cells. IMPRESSION: 1. Multiple new T2/FLAIR lesions within the bilateral cerebral hemispheres consistent with new demyelinating disease. Several of these demonstrate peripheral enhancement consistent with acute inflammation. 2. 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 These are new since prior imaging. This document has been electronically signed by: Thomas Wilson MD on 01/05/2025 17:47:06 ------- 08/06/21 MRI Brain and C spine: multiple areas of hyperintense T2 and FLAIR signal in the supratentorial and infratentorial regions as described above, in a distribution consistent with demyelination. There is no restricted diffusion or abnormal enhancement to suggest active plaques. 3. The right cerebellar tonsillar tip is low-lying with a pointed configuration which may be consistent with a Chiari I malformation. 07/13/23 MRI brain and C spine shows stable lesions in brain and cervical cord . some lesions are smaller. No new enhancing lesions. Labs 04/2024 JCV Antibody: 0.20 Assessment & Plan Assessment & Plan (1) Multiple sclerosis: Code(s): G35 - Multiple sclerosis Category: Medical Plan: 34-year-old with MS initially treated with Tecfidera (in [place]), but stopped medication due to side effects. She was then prescribed Tysabri in 2021, but delayed treatment and did not start medication until 11/2022 which she continued monthly until 09/2024. She stopped Tysabri as she felt unwell for about a week after the infusion. MRI C-spine on 12/29/2024 showed a new, active lesion at C2-C3. 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 She was here with her boyfriend. She had some questions about this condition, treatment, and MRI results which were answered and reviewed, and she was given information about where she could read more about this online. Continue Ocrevus 600mg IV every 6 months. (2) ADD (attention deficit disorder): Code(s): F98.8 - Other specified behavioral and emotional disorders with onset usually occurring in childhood and adolescence Category: Medical Qualifiers: Attention deficit type: unspecified type Qualified Code(s): F98.8 - Other specified behavioral and emotional disorders with onset usually occurring in childhood and adolescence Plan: Continue Adderall 10mg 1 tablet twice a day #60 for 30 days. (3) Anxiety and depression: Code(s): F41.9 - Anxiety disorder, unspecified; F32.A - Depression, unspecified Category: Medical Plan: Continue lorazepam 1mg 1 tablet at bedtime as needed for anxiety #30 for 30 days. She was not interested in daily medication (such as SSRI) at this time. She may benefit from working with therapist. (4) Migraine: Code(s): G43.909 - Migraine, unspecified, not intractable, without status migrainosus Category: Medical Qualifiers: Migraine type: unspecified Status migrainosus presence: without status migrainosus Intractability: not intractable Qualified Code(s): G43.909 - Migraine, unspecified, not intractable, without status migrainosus Plan Was Given IV Solumedrol in [place] and did not like the side effects and stopped Tried Tecfidera in [place], stopped due to side effects Tried Tysabri Meds tried for mood: paroxetine, fluoxetine Coding Level of Care Code Est Pt Level 4 (39890) Diagnoses Multiple sclerosis G35 Attention deficit disorder, unspecified type F98.8 Attention deficit type: unspecified type Anxiety and depression F41.9; F32.A Migraine without status migrainosus, not intractable, unspecified migraine type G43.909 Migraine type: unspecified Status migrainosus presence: without status migrainosus Intractability: not intractable
--- OUTSIDE RECORDS SUMMARY | 2025-02-27 13:14 | XMS_ITS | Patient Health Record ---
Author Organization Star Dickerson III, MD Address [address] [place] [address] Care Team Providers Care Goat Herder Name Role Phone David Miller Primary Care Provider UnavailStar Messina Unavailable [phone] Gunnar GEE, [facility] Unavailable Unavailabl e Allergies Allergen (clinical drug ingredient) Drug/Non Drug Allergy documented on EMR Reaction Allergy Type Onset Date Status No Known Drug Allergy Unknown Drug Allergy Active Reason For Referral No Information Medications Medication SIG (Take, Route, Frequency, Duration) Notes Start Date End Date Status Tysabri 300 MG/15ML as directed Intraven ous every 4 weeks Active Amitriptyline HCl 25 MG Oral Active PARoxetine HCl 40 MG TAKE 1 TABLET BY MO UTH EVERY DAY IN THE MORNING FOR 30 DAYS Oral Active LORazepam 1 MG Oral Activ e D3-50 1.25 MG (03049 UT) Oral Active Social History Tobacco Use: [...] Additional Findings: Tobacco Non-User Ex-cigaret te smoker Alcohol Screen Question Answer Notes Did you have a drink containing alcohol in the p ast year? No Points 0 Interpretation Negative Problems Problem Type SNOMED Code ICD Code Onset Dates Problem Status W/U Status Risk Notes Problem 8675357 Former smoker (Z87.891) Active confirmed She has a plan to prevent relapse in times of stress and illness. Problem Multiple sclerosis (21365013) Multiple sclerosis (G35) Active confirmed She was treated today with the 300 mg Tysabri over 3 hours without incident. She tolerated it well and will return in 1 month. Problem Anxiety (83026042) Anxiety (F41.9) Active confirmed Problem 194344567 Other obesity due to excess calories (E66.09) Active confirmed She has gained several pounds and her body mass index is now 30. We discussed her weight loss strategy and diet and nutrition at length. Problem Restless legs syndrome (67657188) Restless leg syndrome (G25.81) Active confirmed Current therapy was continued without change. Problem Attention deficit disorder (64948972) ADD (attention deficit disorder) (F98.8) Active confirmed Current therapy was continued without change. Vital Signs Heart Rate 87 /min 08/27/2024 Blood pressure diastolic 71 mm Hg 08/27/2024 Height 61 in 08/27/2024 Blood pressure systolic 119 mm Hg 08/27/2024 Weight 170 lbs 08/27/2024 BMI 32.12 kg/m2 08/27/2024 Encounters Encounter Location Date Provider Diagnosis Star Dickerson III, MD [address] [place] [address] [place] [address] 02/29/2024 Star Dickerson Multiple sclerosis G35 ; Restless leg syndrome G25.81 ; ADD (attention deficit disorder) F98.8 ; Former smoker Z87.891 and Overweight E66.3 Star Dickerson III, MD [address] [place] [address] [place] [phone] 03/28/2024 Star Dickerson Multiple sclerosis G35 ; Restless leg syndrome G25.81 ; Former smoker Z87.891 and Overweight E66.3 Star Dickerson III, MD [address] [place] [address] [place] [address] 04/25/2024 Star Dickerson Multiple sclerosis G35 ; Restless leg syndrome G25.81 ; Former smoker Z87.891 ; ADD (attention deficit disorder) F98.8 and Overweight E66.3 Star Dickerson III, MD [address] [place] [address] [place] [phone] 05/25/2024 Star Dickerson Multiple sclerosis G35 ; Restless leg syndrome G25.81 ; ADD (attention deficit disorder) F98.8 ; Former smoker Z87.891 and Overweight E66.3 Star Dickerson III, MD [address] [place] [address] [place] [phone] 06/27/2024 Star Dickerson Multiple sclerosis G35 ; Restless leg syndrome G25.81 ; ADD (attention deficit disorder) F98.8 ; Former smoker Z87.891 and Other obesity due to excess calories E66.09 Star Dickerson III, MD [address] [place] [address] [place] [address] 07/25/2024 Star Dickerson Multiple sclerosis G35 ; Restless leg syndrome G25.81 ; ADD (attention deficit disorder) F98.8 ; Former smoker Z87.891 and Other obesity due to excess calories E66.09 Star Dickerson III, MD [address] [place] [address] [place] [address] 08/27/2024 Star Dickerson Multiple sclerosis G35 ; Restless leg syndrome G25.81 ; ADD (attention deficit disorder) F98.8 and Former smoker Z87.891 Star Dickerson III, MD [address] [place] [address] [place] [address] 09/20/2024 Star Dickerson Assessments Encounter Date Diagnosis (ICD Code) Assessment Notes Treatment Notes Treatment Clinical Notes 02/29/2024 Multiple sclerosis (ICD-10 - G35) She was treated today with the 300 mg Tysabri over 3 hours without incident. She tolerated it well and will return in 1 month. 02/29/2024 Restless leg syndrome (ICD-10 - G25.81) Current therapy was continued without change. 03/28/2024 Multiple sclerosis (ICD-10 - G35) She was treated today with the 300 mg Tysabri over 3 hours without incident. She tolerated it well and will return in 1 month. 03/28/2024 Restless leg syndrome (ICD-10 - G25.81) Current therapy was continued without change. 04/25/2024 Multiple sclerosis (ICD-10 - G35) She was treated today with the 300 mg Tysabri over 3 hours without incident. She tolerated it well and will return in 1 month. 04/25/2024 Restless leg syndrome (ICD-10 - G25.81) Current therapy was continued without change. 05/25/2024 Multiple sclerosis (ICD-10 - G35) She was treated today with the 300 mg Tysabri over 3 hours without incident. She tolerated it well and will return in 1 month. 05/25/2024 Restless leg syndrome (ICD-10 - G25.81) Current therapy was continued without change. 06/27/2024 Multiple sclerosis (ICD-10 - G35) She was treated today with the 300 mg Tysabri over 3 hours without incident. She tolerated it well and will return in 1 month. 06/27/2024 Restless leg syndrome (ICD-10 - G25.81) Current therapy was continued without change. 07/25/2024 Multiple sclerosis (ICD-10 - G35) She was treated today with the 300 mg Tysabri over 3 hours without incident. She tolerated it well and will return in 1 month. 07/25/2024 Restless leg syndrome (ICD-10 - G25.81) Current therapy was continued without change. 08/27/2024 Multiple sclerosis (ICD-10 - G35) She was treated today with the 300 mg Tysabri over 3 hours without incident. She tolerated it well and will return in 1 month. 08/27/2024 Restless leg syndrome (ICD-10 - G25.81) Current therapy was continued without change. 02/29/2024 ADD (attention deficit disorder) (ICD-10 - F98.8) Current therapy was continued without change. 03/28/2024 Former smoker (ICD-10 - Z87.891) She has a plan to prevent relapse in times of stress and illness. 04/25/2024 Former smoker (ICD-10 - Z87.891) She has a plan to prevent relapse in times of stress and illness. 05/25/2024 ADD (attention deficit disorder) (ICD-10 - F98.8) Current therapy was continued without change. 06/27/2024 ADD (attention deficit disorder) (ICD-10 - F98.8) Current therapy was continued without change. 07/25/2024 ADD (attention deficit disorder) (ICD-10 - F98.8) Current therapy was continued without change. 08/27/2024 ADD (attention deficit disorder) (ICD-10 - F98.8) Current therapy was continued without change. 02/29/2024 Former smoker (ICD-10 - Z87.891) She has a plan to prevent relapse in times of stress and illness. 03/28/2024 Overweight (ICD-10 - E66.3) Her body mass index is 28. She is gradually losing weight. We discussed diet and nutrition today. 04/25/2024 ADD (attention deficit disorder) (ICD-10 - F98.8) Current therapy was continued without change. 05/25/2024 Former smoker (ICD-10 - Z87.891) She has a plan to prevent relapse in times of stress and illness. 06/27/2024 Former smoker (ICD-10 - Z87.891) She has a plan to prevent relapse in times of stress and illness. 07/25/2024 Former smoker (ICD-10 - Z87.891) She has a plan to prevent relapse in times of stress and illness. 08/27/2024 Former smoker (ICD-10 - Z87.891) She has a plan to prevent relapse in times of stress and illness. 02/29/2024 Overweight (ICD-10 - E66.3) We made a plan to lose weight at a rate of one half of a pound per week. 04/25/2024 Overweight (ICD-10 - E66.3) Her body mass index is 28. She is gradually losing weight. We discussed diet and nutrition today. 05/25/2024 Overweight (ICD-10 - E66.3) Her body mass index is 28. She is gradually losing weight. We discussed diet and nutrition today. 06/27/2024 Other obesity due to excess calories (ICD-10 - E66.09) She has gained several pounds and her body mass index is now 30. We discussed her weight loss strategy and diet and nutrition at length. 07/25/2024 Other obesity due to excess calories (ICD-10 - E66.09) She has gained several pounds and her body mass index is now 30. We discussed her weight loss strategy and diet and nutrition at length. Plan Of Treatment No Information Insurance Providers Payer Name Payer Address Payer Phone Subscriber Number Group Number Insured Name Patient Relationship to Insured Coverage Start Date Coverage End Date [employer] [address] [address] [place] [address] [id number] AZALIA MORENO Self - patient is the insured Medical (General) History Medical History History ICD Code Multiple sclerosis G35 Anxiety F41.9 Restless leg syndrome G25.81 ADD (attention deficit disorder) F98.8 Former smoker Obesity Surgical History Surgery Date(Month/Year) None
== END 2025-02-27 12:50 | disposition home or self-care (01) ==
LOC: HO.HSM 10:40
PROVIDERS: Visit Provider Registered Nurse
DX: G35 Multiple sclerosis (principal); F98.8 Other specified behavioral and emotional disorders with onset usually occurring in childhood and adolescence; F41.9 Anxiety disorder, unspecified; F32.A Depression, unspecified; G43.909 Migraine, unspecified, not intractable, without status migrainosus
CPT/HCPCS: 99214

== ENCOUNTER → 2025-02-27 10:39 | Outpatient (BNVA) | payer OTHER, SELFPAY | PROVIDERS: Visit Provider Registered Nurse | DX: G35 Multiple sclerosis (principal); F98.8 Other specified behavioral and emotional disorders with onset usually occurring in childhood and adolescence; F41.8 Other specified anxiety disorders; G43.909 Migraine, unspecified, not intractable, without status migrainosus; Z79.899 Other long term (current) drug therapy; Z79.01 Long term (current) use of anticoagulants; Z79.620 Long term (current) use of immunosuppressive biologic | CPT/HCPCS: 99212 ==